=== PATIENT | female | born 1950 | race Caucasian/White ===

== ENCOUNTER 2018-04-13 01:55 | Outpatient (CLI) | payer MEDICARE, MEDICAID, SELFPAY ==
[2018-04-13 12:17] LABS: Hemoglobin A1C 7.3 % (4.5-6.2)
== END 2018-04-13 02:15 ==
PROVIDERS: PCP Family Medicine; Visit Provider Family Medicine
DX: E11.9 Type 2 diabetes mellitus without complications (principal)
CPT/HCPCS: 36415; 83036

== ENCOUNTER 2018-07-15 02:22 | Outpatient (CLI) | payer MEDICARE, MEDICAID, SELFPAY ==
[2018-07-15 11:40] LABS: Hemoglobin A1C 7.6 % (4.5-6.2)
== END 2018-07-15 02:42 ==
PROVIDERS: PCP Family Medicine; Visit Provider Family Medicine
DX: E11.9 Type 2 diabetes mellitus without complications (principal)
CPT/HCPCS: 36415; 83036

== ENCOUNTER 2018-09-27 01:04 | Outpatient (CLI) | payer MEDICARE, MEDICAID, SELFPAY ==
--- NOTE | 2018-09-27 07:38 | DI.US_ITS ---
SYMPTOM/DIAGNOSIS: LOW ABD PAIN, R10.30, FEELS SWELLING RT SIDE OF ABD, PAIN WORSE WITH LARGER MEALS, TENDERNESS BOTH LOWER QUADRANTS ABDOMEN ULTRASOUND: Routine examination was performed. The aorta and IVC are unremarkable. The liver is normal in size and echogenicity. There is normal flow in the portal vein. There are multiple mobile stones seen within the gallbladder. No gallbladder wall thickening, sludge or pericholecystic fluid is seen. The common duct is within normal limits at .5 cm. The pancreatic tail could not be visualized. The remainder of the pancreas is unremarkable. The spleen has a normal appearance as do the kidneys. There is a small amount of fluid in all four quadrants with the greatest quantity seen in the left upper quadrant. There does appear to be a small right pleural effusion. IMPRESSION: 1. Cholelithiasis. No biliary ductal dilatation. 2. Small amount of abdominal ascites. 3. Question of a small right pleural effusion.
== END 2018-09-27 01:24 ==
PROVIDERS: PCP Family Medicine; Visit Provider Family Medicine
DX: R10.31 Right lower quadrant pain (principal); K80.20 Calculus of gallbladder without cholecystitis without obstruction; R18.8 Other ascites; J90 Pleural effusion, not elsewhere classified
CPT/HCPCS: 76700

== ENCOUNTER 2018-09-29 10:14 | Outpatient (CLI) | payer MEDICARE, MEDICAID, SELFPAY ==
[2018-09-29 11:17] LABS: Hemoglobin A1C 7.9 % (4.5-6.2)
[2018-09-29 11:33] LABS: CREATININE 0.75 mg/dL (0.55-1.02)
== END 2018-09-29 10:34 ==
PROVIDERS: PCP Family Medicine; Visit Provider Family Medicine
DX: E11.9 Type 2 diabetes mellitus without complications (principal); R10.30 Lower abdominal pain, unspecified
CPT/HCPCS: 36415; 82565; 83036

== ENCOUNTER 2018-10-04 00:40 | Outpatient (CLI) | payer MEDICARE, MEDICAID, SELFPAY ==
--- NOTE | 2018-10-04 08:06 | DI.CT_ITS ---
SYMPTOMS/DIAGNOSIS: LOWER ABD PAIN WITH ASCITES ON US, R10.30, LOWER ABD PAIN CT SCAN OF THE ABDOMEN AND PELVIS: CT scan of the abdomen and pelvis was performed following the uneventful administration of intravenous and oral contrast material. Comparison ultrasound is 09/27/18. There are small bilateral pleural effusions, right greater than left. Dependent opacities are seen in the lung bases. This may represent atelectasis or pneumonia. The liver is normal in size. No hepatic mass is seen. The portal, superior mesenteric and splenic veins are patent. There are several stones seen within the gallbladder. No gallbladder wall thickening is seen. No biliary ductal dilatation is present. There is no evidence of a pancreatic mass. The spleen is unremarkable. The adrenal glands are unremarkable. The kidneys show normal and symmetric enhancement. No evidence of a solid renal mass or obstruction is present. The urinary bladder is intact. The patient appears to be status post hysterectomy. Note is made of a fluid attenuation, multiseptated right adnexal mass which may be ovarian. It measures 3.9 cm transverse x 3.7 cm AP. The left ovary appears grossly unremarkable. There is atherosclerosis of the abdominal aorta but no aneurysmal dilatation. Incidental note is made of a circumaortic left renal vein. There is a moderate amount of perihepatic and perisplenic ascites. There is small amount of fluid seen in the pericolic gutters bilaterally and a moderate amount of pelvic ascites. Septations are seen in the ascitic fluid in the cul-de-sac and the possibility of a spiculated mass is seen in the posterior pelvis (series 5 image 712). There is thickening of the wall of multiple loops of small bowel present. There is a question of mild soft tissue nodularity of the omentum and mesentery. There is no evidence of bowel obstruction. Degenerative changes are seen in the thoracic and lumbar spine. No aggressive osseous lesions are appreciated. IMPRESSION: 1. Moderate amount of abdominal and pelvic ascites. 2. Question of a spiculated mass-like region in the pelvis. Neoplasm or metastatic disease can not be excluded. Post surgical changes can not be excluded. This area lies posterior to the region of the vaginal cuff. 3. Bowel wall thickening involving multiple loops of small bowel. Inflammatory or infectious enteritis should be considered. 4. Question of thickening of the omentum and mesentery. An inflammatory or infectious process should be considered. Neoplastic process can not excluded. 5. Cholelithiasis. No biliary ductal dilatation. 6. No evidence of a hepatic or adrenal mass. 7. Small bilateral pleural effusions. 8. 3.9 x 3.7 cm right adnexal mass may be ovarian in origin. Pelvic ultrasound is recommended and/or MRI of the pelvis.
[2018-10-04] MEDS: Omnipaque 350 MG/ML 50 ML BTL IV (08:32)
[2018-10-04] MEDS: Omnipaque 350 MG/ML 100 ML BTL IV (10:11)
== END 2018-10-04 01:00 ==
PROVIDERS: PCP Family Medicine; Visit Provider Family Medicine
DX: R10.32 Left lower quadrant pain (principal); R18.8 Other ascites; J90 Pleural effusion, not elsewhere classified; R19.09 Other intra-abdominal and pelvic swelling, mass and lump; R19.07 Generalized intra-abdominal and pelvic swelling, mass and lump; K63.89 Other specified diseases of intestine
CPT/HCPCS: 74177; J3490; Q9967

== ENCOUNTER 2018-10-20 03:38 | Outpatient (CLI) | payer MEDICARE, MEDICAID, SELFPAY ==
--- NOTE | 2018-10-20 08:59 | DI.US_ITS ---
SYMPTOMS/DIAGNOSIS: RIGHT ADNEXAL MASS ON CT ABDOMEN, N94.9 PELVIC ULTRASOUND: A transabdominal ultrasound was carried out. The patient refused a transvaginal study. A 4.1 x 3.7 x 4.2 cm cystic mass is noted in the right adnexa. Thick septations are demonstrated. The patient is status post hysterectomy. Ascitic fluid is noted in the abdomen and pelvis. The left ovary is not visualized. The kidneys are intact. The right kidney measures 10.5, the left kidney 9.8 cm. A right adnexal mass is largely cystic, and contains thick septations and measures up to 4.1 x 3.7 x 4.2 cm. Ascitic fluid is identified in the abdomen and pelvis. The lesion may be of ovarian origin. In an attempt to further characterize the nature of this abnormality, further assessment with MRI could be considered.
== END 2018-10-20 03:58 ==
PROVIDERS: PCP Family Medicine; Visit Provider Family Medicine
DX: N83.8 Other noninflammatory disorders of ovary, fallopian tube and broad ligament (principal); N94.9 Unspecified condition associated with female genital organs and menstrual cycle; R18.8 Other ascites
CPT/HCPCS: 76856

== ENCOUNTER 2019-01-11 01:38 | Outpatient (RCR) | payer MEDICARE, MEDICAID, SELFPAY ==
[2019-01-11] MEDS: Heparin 500 UNITS/5 ML SYRINGE IV (11:51)
[2019-01-11] MEDS: Normal Saline Flush 10 ML SYR IVP (11:51)
[2019-01-11 11:57] LABS: Abs Immature Grans 0.02 k/cumm (0.0-0.09); Absolute Basophil Count 0.02 k/cumm (0.0-0.2); Absolute Eosinophil Count 0.13 k/cumm (0.0-0.7); Absolute Lymphocyte Count 1.15 k/cumm (1.2-3.4); Absolute Monocyte Count 0.21 k/cumm (0.11-0.7); Absolute Neutrophil Count 2.76 k/cumm (1.2-6.7); Basophils % 0.5; HCT 35.8 % (36.0-46.0); HGB 11.4 g/dL (12.0-15.5); Immature Grans % 0.5; Lymphocytes % 26.8; Mean Corp. HGB Concentration 31.8 g/dL (32.0-36.0); Mean Corpuscular Volume 84.8 fL (80-95); Mean Platelet Volume 9.5 fL (8.0-11.0); Monocytes % 4.9; Neutrophils % 64.3; Platelet Count 364 x1000/uL (130-400); RBC 4.22 m/cumm (4.00-5.20); RBC Distribution Width 13.9 % (11.7-14.6); White Blood Cell Count 4.29 k/cumm (4.4-10.8)
== END 2019-01-16 23:59 | disposition home or self-care (01) ==
LOC: INF 01:38
PROVIDERS: PCP Family Medicine; Visit Provider Obstetrics & Gynecology Gynecologic Oncology
DX: C48.2 Malignant neoplasm of peritoneum, unspecified (principal); Z45.2 Encounter for adjustment and management of vascular access device
CPT/HCPCS: 36591; 85025

== ENCOUNTER 2019-02-14 00:58 | Outpatient (RCR) | payer MEDICARE, MEDICAID, SELFPAY ==
[2019-01-17 11:00] LABS: Absolute Basophil Count 0.04 k/cumm (0.0-0.2); Absolute Eosinophil Count 0.08 k/cumm (0.0-0.7); Absolute Lymphocyte Count 0.96 k/cumm (1.2-3.4); Absolute Neutrophil Count 1.44 k/cumm (1.2-6.7); Basophils % 1.3; Eosinophils % 2.6; HCT 35.9 % (36.0-46.0); HGB 11.5 g/dL (12.0-15.5); Lymphocytes % 31.8; Mean Corpuscular Hemoglobin 27.4 pg (27.0-33.0); Mean Corpuscular Volume 85.5 fL (80-95); Monocytes % 16.6; Neutrophils % 47.7; Platelet Count 325 x1000/uL (130-400); RBC Distribution Width 14.4 % (11.7-14.6); White Blood Cell Count 3.02 k/cumm (4.4-10.8)
[2019-01-17] MEDS: Normal Saline Flush 10 ML SYR IVP (11:05)
[2019-01-17] MEDS: Heparin 500 UNITS/5 ML SYRINGE IV (11:05)
[2019-01-17 11:23] LABS: Basophilic Stippling Present; Diff Comment Diff Reviewed; Poikilocytes 1+; Polychromasia Present
[2019-01-24] MEDS: Heparin 500 UNITS/5 ML SYRINGE IV (10:05)
[2019-01-24] MEDS: Normal Saline Flush 10 ML SYR IVP (10:05)
[2019-01-24 10:12] LABS: Abs Immature Grans 0.02 k/cumm (0.0-0.09); Absolute Basophil Count 0.06 k/cumm (0.0-0.2); Absolute Eosinophil Count 0.05 k/cumm (0.0-0.7); Absolute Lymphocyte Count 1.06 k/cumm (1.2-3.4); Absolute Neutrophil Count 2.97 k/cumm (1.2-6.7); Basophils % 1.2; HCT 37.8 % (36.0-46.0); HGB 12.1 g/dL (12.0-15.5); Immature Grans % 0.4; Lymphocytes % 21.8; Mean Corpuscular Hemoglobin 27.4 pg (27.0-33.0); Mean Corpuscular Volume 85.5 fL (80-95); Mean Platelet Volume 8.8 fL (8.0-11.0); Monocytes % 14.4; Neutrophils % 61.2; Platelet Count 275 x1000/uL (130-400); RBC 4.42 m/cumm (4.00-5.20); RBC Distribution Width 14.7 % (11.7-14.6); White Blood Cell Count 4.86 k/cumm (4.4-10.8)
[2019-01-24 10:28] LABS: ALT 14 U/L (12-78); AST 9 U/L (15-37); Albumin 3.5 g/dL (3.4-5.0); Alkaline Phosphatase 72 U/L (46-116); Anion Gap 7.8 mmol/L (3-11); BUN 12 mg/dL (7-18); Bilirubin, Total 0.2 mg/dL (0.2-1.0); CO2 29.2 mmol/L (21.0-32.0); CREATININE 0.56 mg/dL (0.55-1.02); Calcium 9.1 mg/dL (8.5-10.1); Chloride 100 mmol/L (98-107); Glucose 177 mg/dL (70-100); Potassium 4.6 mmol/L (3.5-5.1); Sodium 137 mmol/L (136-145); Total Protein 7.4 g/dL (6.4-8.2)
[2019-01-25 11:40] LABS: CA 125 260 U/mL (0-30)
[2019-02-01] MEDS: Normal Saline Flush 10 ML SYR IVP (11:56)
[2019-02-01] MEDS: Heparin 500 UNITS/5 ML SYRINGE IV (11:57)
[2019-02-01 12:16] LABS: Abs Immature Grans 0.01 k/cumm (0.0-0.09); Absolute Basophil Count 0.01 k/cumm (0.0-0.2); Absolute Eosinophil Count 0.11 k/cumm (0.0-0.7); Absolute Lymphocyte Count 0.85 k/cumm (1.2-3.4); Absolute Monocyte Count 0.13 k/cumm (0.11-0.7); Absolute Neutrophil Count 2.46 k/cumm (1.2-6.7); Basophils % 0.3; Eosinophils % 3.1; HCT 34.2 % (36.0-46.0); HGB 10.9 g/dL (12.0-15.5); Immature Grans % 0.3; Lymphocytes % 23.8; Mean Corp. HGB Concentration 31.9 g/dL (32.0-36.0); Mean Corpuscular Hemoglobin 26.8 pg (27.0-33.0); Mean Corpuscular Volume 84.2 fL (80-95); Mean Platelet Volume 9.3 fL (8.0-11.0); Monocytes % 3.6; Neutrophils % 68.9; Platelet Count 168 x1000/uL (130-400); RBC 4.06 m/cumm (4.00-5.20); RBC Distribution Width 14.3 % (11.7-14.6); White Blood Cell Count 3.57 k/cumm (4.4-10.8)
[2019-02-01 12:38] LABS: Hemoglobin A1C 8.1 % (4.5-6.2)
[2019-02-08] MEDS: Normal Saline Flush 10 ML SYR IVP (12:00)
[2019-02-08] MEDS: Heparin 500 UNITS/5 ML SYRINGE IV (12:00)
[2019-02-08 12:35] LABS: Abs Immature Grans 0.01 k/cumm (0.0-0.09); Absolute Basophil Count 0.02 k/cumm (0.0-0.2); Absolute Eosinophil Count 0.05 k/cumm (0.0-0.7); Absolute Lymphocyte Count 0.98 k/cumm (1.2-3.4); Absolute Neutrophil Count 0.62 k/cumm (1.2-6.7); Eosinophils % 2.4; HCT 36.1 % (36.0-46.0); HGB 11.6 g/dL (12.0-15.5); Immature Grans % 0.5; Lymphocytes % 47.1; Mean Corp. HGB Concentration 32.1 g/dL (32.0-36.0); Mean Corpuscular Hemoglobin 27.2 pg (27.0-33.0); Mean Corpuscular Volume 84.7 fL (80-95); Mean Platelet Volume 8.8 fL (8.0-11.0); Monocytes % 19.2; Neutrophils % 29.8; Platelet Count 379 x1000/uL (130-400); RBC 4.26 m/cumm (4.00-5.20); RBC Distribution Width 15.2 % (11.7-14.6); White Blood Cell Count 2.08 k/cumm (4.4-10.8)
[2019-02-08 12:52] LABS: Diff Comment Diff Reviewed; Poikilocytes 1+; Polychromasia Present
[2019-02-14] MEDS: Heparin 500 UNITS/5 ML SYRINGE IV (09:10)
[2019-02-14] MEDS: Normal Saline Flush 10 ML SYR IVP (09:10)
[2019-02-14 09:34] LABS: Abs Immature Grans 0.01 k/cumm (0.0-0.09); Absolute Basophil Count 0.03 k/cumm (0.0-0.2); Absolute Eosinophil Count 0.04 k/cumm (0.0-0.7); Absolute Lymphocyte Count 0.88 k/cumm (1.2-3.4); Absolute Monocyte Count 0.53 k/cumm (0.11-0.7); Absolute Neutrophil Count 2.27 k/cumm (1.2-6.7); Basophils % 0.8; Eosinophils % 1.1; HCT 36.6 % (36.0-46.0); HGB 11.7 g/dL (12.0-15.5); Immature Grans % 0.3; Lymphocytes % 23.4; Mean Corpuscular Hemoglobin 27.3 pg (27.0-33.0); Mean Corpuscular Volume 85.5 fL (80-95); Mean Platelet Volume 8.5 fL (8.0-11.0); Monocytes % 14.1; Neutrophils % 60.3; Platelet Count 402 x1000/uL (130-400); RBC 4.28 m/cumm (4.00-5.20); White Blood Cell Count 3.76 k/cumm (4.4-10.8)
[2019-02-14 09:53] LABS: ALT 19 U/L (12-78); AST 9 U/L (15-37); Albumin 3.5 g/dL (3.4-5.0); Alkaline Phosphatase 67 U/L (46-116); Anion Gap 9.4 mmol/L (3-11); BUN 11 mg/dL (7-18); Bilirubin, Total 0.2 mg/dL (0.2-1.0); CO2 27.6 mmol/L (21.0-32.0); CREATININE 0.56 mg/dL (0.55-1.02); Calcium 9.5 mg/dL (8.5-10.1); Chloride 98 mmol/L (98-107); Glucose 172 mg/dL (70-100); Magnesium 1.1 mg/dL (1.8-2.4); Potassium 4.3 mmol/L (3.5-5.1); Sodium 135 mmol/L (136-145); Total Protein 7.4 g/dL (6.4-8.2)
[2019-02-15 10:31] LABS: CA 125 146 U/mL (0-30)
== END 2019-02-16 23:59 | disposition home or self-care (01) ==
LOC: INF 00:58
PROVIDERS: Family Medicine; PCP Family Medicine; Visit Provider Obstetrics & Gynecology Gynecologic Oncology
DX: C48.2 Malignant neoplasm of peritoneum, unspecified (principal); Z45.2 Encounter for adjustment and management of vascular access device
CPT/HCPCS: 36591; 80053; 86304; 83036; 83735; 85025

== ENCOUNTER 2019-03-15 01:17 | Outpatient (RCR) | payer MEDICARE, MEDICAID, SELFPAY ==
[2019-02-22] MEDS: Normal Saline Flush 10 ML SYR IVP (09:20)
[2019-02-22] MEDS: Heparin 500 UNITS/5 ML SYRINGE IV (09:20)
[2019-02-22 09:43] LABS: Abs Immature Grans 0.01 k/cumm (0.0-0.09); Absolute Basophil Count 0.01 k/cumm (0.0-0.2); Absolute Eosinophil Count 0.03 k/cumm (0.0-0.7); Absolute Lymphocyte Count 0.74 k/cumm (1.2-3.4); Absolute Monocyte Count 0.12 k/cumm (0.11-0.7); Absolute Neutrophil Count 1.33 k/cumm (1.2-6.7); Basophils % 0.4; Eosinophils % 1.3; HCT 33.7 % (36.0-46.0); Immature Grans % 0.4; Mean Corp. HGB Concentration 32.6 g/dL (32.0-36.0); Mean Corpuscular Hemoglobin 27.5 pg (27.0-33.0); Mean Corpuscular Volume 84.3 fL (80-95); Mean Platelet Volume 9.8 fL (8.0-11.0); Monocytes % 5.4; Neutrophils % 59.5; Platelet Count 207 x1000/uL (130-400); RBC Distribution Width 15.3 % (11.7-14.6); White Blood Cell Count 2.24 k/cumm (4.4-10.8)
[2019-02-22 10:20] LABS: Diff Comment Diff Reviewed
[2019-03-01] MEDS: Normal Saline Flush 10 ML SYR IVP (11:44)
[2019-03-01] MEDS: Heparin 500 UNITS/5 ML SYRINGE IV (11:45)
[2019-03-01 11:58] LABS: Abs Immature Grans 0.05 k/cumm (0.0-0.09); Absolute Basophil Count 0.03 k/cumm (0.0-0.2); Absolute Eosinophil Count 0.03 k/cumm (0.0-0.7); Absolute Lymphocyte Count 1.04 k/cumm (1.2-3.4); Absolute Monocyte Count 0.61 k/cumm (0.11-0.7); Absolute Neutrophil Count 0.95 k/cumm (1.2-6.7); Basophils % 1.1; Eosinophils % 1.1; HCT 33.5 % (36.0-46.0); Immature Grans % 1.8; Lymphocytes % 38.4; Mean Corp. HGB Concentration 32.8 g/dL (32.0-36.0); Mean Corpuscular Hemoglobin 27.9 pg (27.0-33.0); Mean Platelet Volume 8.7 fL (8.0-11.0); Monocytes % 22.5; Neutrophils % 35.1; Platelet Count 383 x1000/uL (130-400); RBC 3.94 m/cumm (4.00-5.20); White Blood Cell Count 2.71 k/cumm (4.4-10.8)
[2019-03-01 12:28] LABS: Diff Comment Agrees w/ Instrument
[2019-03-01 12:29] LABS: Poikilocytes 2+; Polychromasia Present
[2019-03-07] MEDS: Normal Saline Flush 10 ML SYR IVP (11:48)
[2019-03-07] MEDS: Heparin 500 UNITS/5 ML SYRINGE IV (11:48)
[2019-03-07 12:06] LABS: Abs Immature Grans 0.03 k/cumm (0.0-0.09); Absolute Basophil Count 0.04 k/cumm (0.0-0.2); Absolute Eosinophil Count 0.04 k/cumm (0.0-0.7); Absolute Lymphocyte Count 1.08 k/cumm (1.2-3.4); Absolute Monocyte Count 0.65 k/cumm (0.11-0.7); Absolute Neutrophil Count 4.17 k/cumm (1.2-6.7); Basophils % 0.7; Eosinophils % 0.7; HCT 36.5 % (36.0-46.0); HGB 11.7 g/dL (12.0-15.5); Immature Grans % 0.5; Mean Corp. HGB Concentration 32.1 g/dL (32.0-36.0); Mean Corpuscular Hemoglobin 27.7 pg (27.0-33.0); Mean Corpuscular Volume 86.3 fL (80-95); Mean Platelet Volume 8.5 fL (8.0-11.0); Monocytes % 10.8; Neutrophils % 69.3; Platelet Count 368 x1000/uL (130-400); RBC 4.23 m/cumm (4.00-5.20); RBC Distribution Width 16.7 % (11.7-14.6); White Blood Cell Count 6.01 k/cumm (4.4-10.8)
[2019-03-07 12:19] LABS: ALT 19 U/L (12-78); AST 13 U/L (15-37); Albumin 3.4 g/dL (3.4-5.0); Alkaline Phosphatase 71 U/L (46-116); Anion Gap 11.2 mmol/L (3-11); BUN 7 mg/dL (7-18); Bilirubin, Total 0.3 mg/dL (0.2-1.0); CO2 27.8 mmol/L (21.0-32.0); CREATININE 0.71 mg/dL (0.55-1.02); Calcium 8.9 mg/dL (8.5-10.1); Chloride 102 mmol/L (98-107); Glucose 196 mg/dL (70-100); Potassium 4.3 mmol/L (3.5-5.1); Sodium 141 mmol/L (136-145); Total Protein 7.4 g/dL (6.4-8.2)
[2019-03-08 10:41] LABS: CA 125 121 U/mL (0-30)
[2019-03-15] MEDS: Normal Saline Flush 10 ML SYR IVP (11:55)
[2019-03-15] MEDS: Heparin 500 UNITS/5 ML SYRINGE IV (11:55)
[2019-03-15 12:11] LABS: Abs Immature Grans 0.02 k/cumm (0.0-0.09); Absolute Basophil Count 0.03 k/cumm (0.0-0.2); Absolute Eosinophil Count 0.04 k/cumm (0.0-0.7); Absolute Lymphocyte Count 0.73 k/cumm (1.2-3.4); Absolute Monocyte Count 0.12 k/cumm (0.11-0.7); Absolute Neutrophil Count 2.25 k/cumm (1.2-6.7); Basophils % 0.9; Eosinophils % 1.3; HCT 32.6 % (36.0-46.0); HGB 10.6 g/dL (12.0-15.5); Immature Grans % 0.6; Lymphocytes % 22.9; Mean Corp. HGB Concentration 32.5 g/dL (32.0-36.0); Mean Corpuscular Hemoglobin 28.4 pg (27.0-33.0); Mean Corpuscular Volume 87.4 fL (80-95); Mean Platelet Volume 9.7 fL (8.0-11.0); Monocytes % 3.8; Neutrophils % 70.5; Platelet Count 180 x1000/uL (130-400); RBC 3.73 m/cumm (4.00-5.20); RBC Distribution Width 16.2 % (11.7-14.6); White Blood Cell Count 3.19 k/cumm (4.4-10.8)
== END 2019-03-19 23:59 | disposition home or self-care (01) ==
LOC: INF 01:17
PROVIDERS: PCP Family Medicine; Visit Provider Obstetrics & Gynecology Gynecologic Oncology
DX: C48.2 Malignant neoplasm of peritoneum, unspecified (principal); Z45.2 Encounter for adjustment and management of vascular access device
CPT/HCPCS: 36591; 80053; 86304; 85025

== ENCOUNTER 2019-04-18 01:42 | Outpatient (RCR) | payer MEDICARE, MEDICAID, SELFPAY ==
[2019-03-22] MEDS: Normal Saline Flush 10 ML SYR IVP (11:47)
[2019-03-22] MEDS: Heparin 500 UNITS/5 ML SYRINGE IV (11:47)
[2019-03-22 11:57] LABS: Absolute Basophil Count 0.03 k/cumm (0.0-0.2); Absolute Eosinophil Count 0.03 k/cumm (0.0-0.7); Absolute Lymphocyte Count 1.19 k/cumm (1.2-3.4); Absolute Monocyte Count 0.55 k/cumm (0.11-0.7); Absolute Neutrophil Count 0.64 k/cumm (1.2-6.7); Basophils % 1.2; Eosinophils % 1.2; HCT 34.5 % (36.0-46.0); Lymphocytes % 48.8; Mean Corp. HGB Concentration 31.9 g/dL (32.0-36.0); Mean Corpuscular Hemoglobin 27.8 pg (27.0-33.0); Mean Corpuscular Volume 87.1 fL (80-95); Monocytes % 22.5; Neutrophils % 26.3; Platelet Count 246 x1000/uL (130-400); RBC 3.96 m/cumm (4.00-5.20); White Blood Cell Count 2.44 k/cumm (4.4-10.8)
[2019-03-22 12:24] LABS: Diff Comment RBC Morph Reviewed
[2019-03-22 12:25] LABS: Poikilocytes 1+; Polychromasia Present
[2019-03-28] MEDS: Heparin 500 UNITS/5 ML SYRINGE IV (11:35)
[2019-03-28] MEDS: Normal Saline Flush 10 ML SYR IVP (11:35)
[2019-03-28 11:52] LABS: Abs Immature Grans 0.02 k/cumm (0.0-0.09); Absolute Basophil Count 0.02 k/cumm (0.0-0.2); Absolute Monocyte Count 0.69 k/cumm (0.11-0.7); Absolute Neutrophil Count 2.79 k/cumm (1.2-6.7); Basophils % 0.5; HCT 35.5 % (36.0-46.0); HGB 11.4 g/dL (12.0-15.5); Immature Grans % 0.5; Lymphocytes % 20.4; Mean Corp. HGB Concentration 32.1 g/dL (32.0-36.0); Mean Corpuscular Hemoglobin 28.1 pg (27.0-33.0); Mean Corpuscular Volume 87.7 fL (80-95); Mean Platelet Volume 8.2 fL (8.0-11.0); Monocytes % 15.6; Platelet Count 234 x1000/uL (130-400); RBC 4.05 m/cumm (4.00-5.20); White Blood Cell Count 4.42 k/cumm (4.4-10.8)
[2019-03-28 12:05] LABS: ALT 21 U/L (14-59); AST 14 U/L (15-37); Albumin 3.5 g/dL (3.4-5.0); Alkaline Phosphatase 71 U/L (46-116); Anion Gap 10.4 mmol/L (3-11); BUN 11 mg/dL (7-18); Bilirubin, Total 0.4 mg/dL (0.2-1.0); CO2 28.6 mmol/L (21.0-32.0); Calcium 8.6 mg/dL (8.5-10.1); Chloride 97 mmol/L (98-107); Glucose 199 mg/dL (70-100); Potassium 4.1 mmol/L (3.5-5.1); Sodium 136 mmol/L (136-145); Total Protein 7.3 g/dL (6.4-8.2)
[2019-03-29 12:01] LABS: CA 125 74 U/mL (0-30)
[2019-04-05] MEDS: Heparin 500 UNITS/5 ML SYRINGE IV (11:35)
[2019-04-05] MEDS: Normal Saline Flush 10 ML SYR IVP (11:35)
[2019-04-05 11:45] LABS: Abs Immature Grans 0.01 k/cumm (0.0-0.09); Absolute Basophil Count 0.01 k/cumm (0.0-0.2); Absolute Eosinophil Count 0.04 k/cumm (0.0-0.7); Absolute Lymphocyte Count 0.94 k/cumm (1.2-3.4); Absolute Monocyte Count 0.08 k/cumm (0.11-0.7); Basophils % 0.4; Eosinophils % 1.6; HCT 31.4 % (36.0-46.0); HGB 10.2 g/dL (12.0-15.5); Immature Grans % 0.4; Lymphocytes % 36.4; Mean Corp. HGB Concentration 32.5 g/dL (32.0-36.0); Mean Corpuscular Hemoglobin 28.6 pg (27.0-33.0); Mean Platelet Volume 9.1 fL (8.0-11.0); Monocytes % 3.1; Neutrophils % 58.1; Platelet Count 142 x1000/uL (130-400); RBC 3.57 m/cumm (4.00-5.20); White Blood Cell Count 2.58 k/cumm (4.4-10.8)
[2019-04-12] MEDS: Heparin 500 UNITS/5 ML SYRINGE IV (11:49)
[2019-04-12] MEDS: Normal Saline Flush 10 ML SYR IVP (11:49)
[2019-04-12 11:58] LABS: Absolute Basophil Count 0.01 k/cumm (0.0-0.2); Absolute Eosinophil Count 0.02 k/cumm (0.0-0.7); Absolute Lymphocyte Count 0.95 k/cumm (1.2-3.4); Absolute Monocyte Count 0.45 k/cumm (0.11-0.7); Basophils % 0.5; Eosinophils % 1.1; Lymphocytes % 51.1; Mean Corp. HGB Concentration 33.3 g/dL (32.0-36.0); Mean Corpuscular Hemoglobin 29.7 pg (27.0-33.0); Mean Corpuscular Volume 89.2 fL (80-95); Mean Platelet Volume 8.5 fL (8.0-11.0); Monocytes % 24.2; Neutrophils % 23.1; Platelet Count 207 x1000/uL (130-400); RBC Distribution Width 16.9 % (11.7-14.6)
[2019-04-12 13:10] LABS: Absolute Neutrophil Count 0.43 k/cumm (1.2-6.7); White Blood Cell Count 1.86 k/cumm (4.4-10.8)
[2019-04-12 13:11] LABS: Diff Comment Agrees w/ Instrument
[2019-04-12 13:12] LABS: Anisocytosis 2+; Ovalocytes 2+; Poikilocytes 2+; Schistocytes 1+
[2019-04-18] MEDS: Heparin 500 UNITS/5 ML SYRINGE IV (11:30)
[2019-04-18] MEDS: Normal Saline Flush 10 ML SYR IVP (11:30)
[2019-04-18 11:50] LABS: Abs Immature Grans 0.02 k/cumm (0.0-0.09); Absolute Basophil Count 0.01 k/cumm (0.0-0.2); Absolute Eosinophil Count 0.04 k/cumm (0.0-0.7); Absolute Lymphocyte Count 0.84 k/cumm (1.2-3.4); Absolute Monocyte Count 0.49 k/cumm (0.11-0.7); Absolute Neutrophil Count 1.81 k/cumm (1.2-6.7); Basophils % 0.3; Eosinophils % 1.2; HCT 34.4 % (36.0-46.0); HGB 11.1 g/dL (12.0-15.5); Immature Grans % 0.6; Lymphocytes % 26.2; Mean Corp. HGB Concentration 32.3 g/dL (32.0-36.0); Mean Corpuscular Hemoglobin 29.3 pg (27.0-33.0); Mean Corpuscular Volume 90.8 fL (80-95); Mean Platelet Volume 8.3 fL (8.0-11.0); Monocytes % 15.3; Neutrophils % 56.4; Platelet Count 246 x1000/uL (130-400); RBC 3.79 m/cumm (4.00-5.20); RBC Distribution Width 16.9 % (11.7-14.6); White Blood Cell Count 3.21 k/cumm (4.4-10.8)
[2019-04-18 12:03] LABS: ALT 23 U/L (14-59); AST 16 U/L (15-37); Albumin 3.5 g/dL (3.4-5.0); Alkaline Phosphatase 76 U/L (46-116); BUN 10 mg/dL (7-18); Bilirubin, Total 0.3 mg/dL (0.2-1.0); CREATININE 0.76 mg/dL (0.55-1.02); Calcium 8.2 mg/dL (8.5-10.1); Chloride 103 mmol/L (98-107); Glucose 200 mg/dL (70-100); Potassium 4.2 mmol/L (3.5-5.1); Sodium 139 mmol/L (136-145); Total Protein 7.1 g/dL (6.4-8.2)
[2019-04-19 10:36] LABS: CA 125 60 U/mL (0-30)
== END 2019-04-18 23:59 | disposition home or self-care (01) ==
LOC: INF 01:42
PROVIDERS: PCP Family Medicine; Visit Provider Obstetrics & Gynecology Gynecologic Oncology
DX: C48.2 Malignant neoplasm of peritoneum, unspecified (principal); Z45.2 Encounter for adjustment and management of vascular access device
CPT/HCPCS: 36591; 80053; 86304; 85025

== ENCOUNTER 2019-05-17 02:11 | Outpatient (RCR) | payer MEDICARE, MEDICAID, SELFPAY ==
[2019-04-26 12:02] LABS: Abs Immature Grans 0.01 k/cumm (0.0-0.09); Absolute Basophil Count 0.01 k/cumm (0.0-0.2); Absolute Eosinophil Count 0.02 k/cumm (0.0-0.7); Absolute Lymphocyte Count 0.74 k/cumm (1.2-3.4); Absolute Monocyte Count 0.13 k/cumm (0.11-0.7); Absolute Neutrophil Count 1.56 k/cumm (1.2-6.7); Basophils % 0.4; Eosinophils % 0.8; HCT 31.4 % (36.0-46.0); HGB 10.3 g/dL (12.0-15.5); Immature Grans % 0.4; Mean Corp. HGB Concentration 32.8 g/dL (32.0-36.0); Mean Corpuscular Volume 91.5 fL (80-95); Mean Platelet Volume 9.2 fL (8.0-11.0); Monocytes % 5.3; Neutrophils % 63.1; Platelet Count 223 x1000/uL (130-400); RBC 3.43 m/cumm (4.00-5.20); RBC Distribution Width 15.3 % (11.7-14.6); White Blood Cell Count 2.47 k/cumm (4.4-10.8)
[2019-04-26] MEDS: Heparin 500 UNITS/5 ML SYRINGE IV (12:22)
[2019-04-26] MEDS: Normal Saline Flush 10 ML SYR IVP (12:22)
[2019-05-03] MEDS: Heparin 500 UNITS/5 ML SYRINGE IV (11:40)
[2019-05-03] MEDS: Normal Saline Flush 10 ML SYR IVP (11:40)
[2019-05-03 11:59] LABS: HCT 32.5 % (36.0-46.0); HGB 10.5 g/dL (12.0-15.5); Mean Corp. HGB Concentration 32.3 g/dL (32.0-36.0); Mean Corpuscular Hemoglobin 29.9 pg (27.0-33.0); Mean Corpuscular Volume 92.6 fL (80-95); Mean Platelet Volume 8.6 fL (8.0-11.0); Platelet Count 249 x1000/uL (130-400); RBC 3.51 m/cumm (4.00-5.20); RBC Distribution Width 15.5 % (11.7-14.6)
[2019-05-03 12:39] LABS: White Blood Cell Count 1.77 k/cumm (4.4-10.8)
[2019-05-03 12:46] LABS: Absolute Neutrophil Count 0.57 k/cumm (1.2-6.7)
[2019-05-03 12:47] LABS: Absolute Lymphocyte Count 0.83 k/cumm (1.2-3.4)
[2019-05-03 12:48] LABS: Absolute Monocyte Count 0.35 k/cumm (0.11-0.7)
[2019-05-03 12:49] LABS: Absolute Eosinophil Count 0.02 k/cumm (0.0-0.7)
[2019-05-03 12:51] LABS: Diff Comment Manual Differential
[2019-05-03 12:52] LABS: RBC Morphology Normal
[2019-05-06 12:10] LABS: Abs Immature Grans 0.03 k/cumm (0.0-0.09); Absolute Basophil Count 0.02 k/cumm (0.0-0.2); Absolute Eosinophil Count 0.03 k/cumm (0.0-0.7); Absolute Lymphocyte Count 1.09 k/cumm (1.2-3.4); Absolute Monocyte Count 0.54 k/cumm (0.11-0.7); Absolute Neutrophil Count 1.12 k/cumm (1.2-6.7); Basophils % 0.7; Eosinophils % 1.1; HCT 35.2 % (36.0-46.0); HGB 11.4 g/dL (12.0-15.5); Immature Grans % 1.1; Lymphocytes % 38.5; Mean Corp. HGB Concentration 32.4 g/dL (32.0-36.0); Mean Corpuscular Hemoglobin 30.1 pg (27.0-33.0); Mean Corpuscular Volume 92.9 fL (80-95); Mean Platelet Volume 8.5 fL (8.0-11.0); Monocytes % 19.1; Neutrophils % 39.5; Platelet Count 260 x1000/uL (130-400); RBC 3.79 m/cumm (4.00-5.20); RBC Distribution Width 15.8 % (11.7-14.6); White Blood Cell Count 2.83 k/cumm (4.4-10.8)
[2019-05-06] MEDS: Heparin 500 UNITS/5 ML SYRINGE IV (12:24)
[2019-05-06] MEDS: Normal Saline Flush 10 ML SYR IVP (12:24)
[2019-05-06 12:26] LABS: ALT 22 U/L (14-59); AST 16 U/L (15-37); Albumin 3.6 g/dL (3.4-5.0); Alkaline Phosphatase 70 U/L (46-116); Anion Gap 10.9 mmol/L (3-11); BUN 10 mg/dL (7-18); Bilirubin, Total 0.4 mg/dL (0.2-1.0); CO2 26.1 mmol/L (21.0-32.0); Calcium 8.5 mg/dL (8.5-10.1); Chloride 102 mmol/L (98-107); Glucose 195 mg/dL (70-100); Potassium 4.2 mmol/L (3.5-5.1); Sodium 139 mmol/L (136-145); Total Protein 7.4 g/dL (6.4-8.2)
[2019-05-09 10:49] LABS: CA 125 60 U/mL (0-30)
[2019-05-17] MEDS: Heparin 500 UNITS/5 ML SYRINGE IV (11:56)
[2019-05-17] MEDS: Normal Saline Flush 10 ML SYR IVP (11:56)
[2019-05-17 12:09] LABS: Abs Immature Grans 0.03 k/cumm (0.0-0.09); HCT 33.4 % (36.0-46.0); HGB 10.9 g/dL (12.0-15.5); Mean Corp. HGB Concentration 32.6 g/dL (32.0-36.0); Platelet Count 117 x1000/uL (130-400); RBC 3.63 m/cumm (4.00-5.20); RBC Distribution Width 14.9 % (11.7-14.6); White Blood Cell Count 4.49 k/cumm (4.4-10.8)
[2019-05-17 12:41] LABS: Absolute Eosinophil Count 0.04 k/cumm (0.0-0.7); Absolute Lymphocyte Count 1.12 k/cumm (1.2-3.4); Absolute Monocyte Count 0.49 k/cumm (0.11-0.7); Absolute Neutrophil Count 2.74 k/cumm (1.2-6.7); Atypical Lymphocytes % 3; Diff Comment Manual Differential; RBC Morphology Normal
== END 2019-05-19 23:59 | disposition home or self-care (01) ==
LOC: INF 02:11
PROVIDERS: PCP Family Medicine; Visit Provider Obstetrics & Gynecology Gynecologic Oncology
DX: C48.2 Malignant neoplasm of peritoneum, unspecified (principal); Z45.2 Encounter for adjustment and management of vascular access device
CPT/HCPCS: 36591; 80053; 86304; 85025

== ENCOUNTER 2019-05-30 10:12 | Emergency (ER) | payer MEDICARE, MEDICAID, SELFPAY ==
[2019-05-30 10:19] VITALS: BP 105/63; PULSE 105; RESP 18; TEMP 36.6; O2SAT 97
--- NOTE | 2019-05-30 10:31 | W.ED.GENAD ---
Discharge Plan Disposition Patient Disposition: HOME Condition: Stable Discharge Details Chief Complaint: Nausea/Vomit/Diar Clinical Impression: Vomiting, Dehydration Primary Care Provider: Buck Major ED Provider: Chilo Patel Home Meds and New Rx's Prescriptions: Continued glipizide 5 mg tablet extended release 24hr 5 mg PO DAILY Qty: 90 RF: 3 (DME) lancets 28 gauge misc 1 ea Miscellaneous BID Qty: 200 RF: 4 lisinopril 10 mg tablet 10 mg PO DAILY Qty: 90 RF: 3 metformin 1,000 mg tablet 1,000 mg PO BID Qty: 180 RF: 4 (DME) Blood Glucose Test strip 1 ea Miscellaneous BID Qty: 200 RF: 4 metoprolol tartrate 25 mg tablet 12.5 mg PO BID RF: 0 pantoprazole [Protonix] 40 mg tablet,delayed release (DR/EC) 40 mg PO DAILY RF: 0 Lantus Solostar U-100 Insulin 100 unit/mL (3 mL) insulin pen 10 unit SC HS RF: 0 lorazepam [Ativan] 0.5 mg tablet 0.5 mg PO Q6H PRN PRNRF: 0 prochlorperazine maleate [Compazine] 10 mg tablet 10 mg PO Q6H PRN RF: 0 ondansetron HCl [Zofran] 8 mg tablet 8 mg PO Q8H PRN PRNRF: 0 aspirin [Aspirin Low-Strength] 81 MG tablet,chewable 81 mg PO DAILY RF: 0 (DME) Comfort EZ Pen [place] 33 gauge x 3/16 needle See Dose Instructions .ROUTE .MEDSUPPLY Qty: 100 RF: 3 loratadine [Claritin] 10 mg Tablet 10 mg PO DAILY RF: 0 Discharge Instructions Instructions: Dehydration (ED), Acute Nausea and Vomiting (ED) Additional Instructions: Please return immediately to the emergency department if you develop any new or worsening symptoms or if you become otherwise concerned. It is extremely important that you call you soon as possible to make an appointment to be seen in follow-up for this visit by your primary care doctor, and also that you attend your scheduled appointment with oncology tomorrow as planned. Referrals: Buck Major MD [Primary Care Provider] - Discharge Data Discharge Date/Time-TO BE ENTERED AT DEPARTURE: 05/30/19 16:35 Medical Decision Making Martha Linares is a 69-year-old woman with a history of insulin-dependent diabetes, hypertension, ovarian cancer currently being treated with chemotherapy who presented to the emergency department with 2 days of nausea and vomiting. On exam patient is chronically ill but acutely nontoxic appearing. She does have dry mucous membranes. Benign abdominal exam. Concern for metabolic/light disturbance, urinary tract infection, dehydration, other. At this time doubt acute emergent intra-abdominal process. Exam/history is not consistent with acute emergent intracranial process, sepsis, acute emergent vascular process. Plan for screening labs, UA, IV placement, IV fluid hydration, IV Zofran. Will monitor and reassess. Labs reviewed, lactate 2.4, mild leukocytosis, no anion gap. Patient reports feeling much improved after 1 L of IV fluid and IV Zofran, drink water without issue. Patient is stating that she feels ready to go home. Plan to repeat lactate, discussion with [facility] pipe organ mechanic-oncology. Repeat lactate 1.9. UA equivocal for UTI, no urinary symptoms, will hold abx pending culture. I discussed patient presentation, examination, and results with Dr. Amor of gynecologic oncology at [facility], who will relay information regarding patient's emergency visit to her oncology team, states no contraindication to Zofran except for 3 days after chemotherapy infusion. I had a lengthy discussion with patient regarding return to emergency department precautions, importance of outpatient follow-up with PCP and also with scheduled appointment with oncology tomorrow, and home care. Patient verbalized understanding of the plan was amenable. All questions were answered. Patient developed return of nausea just prior to discharge. No vomiting. Plan for continued IV fluid, reassessment. Pt signed out to Dr. Patel at time of hift change, reassessment pending. Medical Records Medical records reviewed: Yes I reviewed the patient's medical records. Lab Data Lab results reviewed: Yes I reviewed the patient's lab results. Labs: 05/30/19 11:40 Blood Blood Culture - Final NO GROWTH 120 HOURS 05/30/19 11:30 Blood Blood Culture - Final NO GROWTH 120 HOURS 05/30/19 12:10 Urine - Reflex from Ua Urine Culture - Final Escherichia coli Laboratory Tests Range/Units 05/30/19 05/30/19 05/30/19 11:00 11:00 11:00 WBC (4.4-10.8) k/cumm 13.79 H RBC (4.00-5.20) m/cumm 3.68 L Hgb (12.0-15.5) g/dL 11.2 L Hct (36.0-46.0) % 33.9 L MCV (80-95) fL 92.1 MCH (27.0-33.0) pg 30.4 MCHC (32.0-36.0) g/dL 33.0 RDW (11.7-14.6) % 16.1 H Plt Count (130-400) x1000/uL 239 MPV (8.0-11.0) fL 8.7 Immature Gran % 0.3 Neutrophils % 85.1 Lymphocytes % 3.6 Monocytes % 10.9 Eosinophils % 0.0 Basophils % 0.1 Absolute Neutrophils (1.2-6.7) k/cumm 11.74 H Absolute Lymphocytes (1.2-3.4) k/cumm 0.50 L Absolute Monocytes (0.11-0.7) k/cumm 1.50 H Absolute Eosinophils (0.0-0.7) k/cumm 0.00 Absolute Basophils (0.0-0.2) k/cumm 0.01 Sodium (136-145) mmol/L 138 Potassium (3.5-5.1) mmol/L 3.5 D Chloride (98-107) mmol/L 98 Carbon Dioxide (21.0-32.0) mmol/L 29.2 Anion Gap (3-11) mmol/L 10.8 BUN (7-18) mg/dL 21 H D Creatinine (0.55-1.02) mg/dL 0.82 Estimated GFR/1.73 m2 (mL/min/1.73m2) >= 60.00 Glucose (70-100) mg/dL 309 H D Lactate (0.6-1.4) mmol/L 2.4 H* Calcium (8.5-10.1) mg/dL 8.8 Total Bilirubin (0.2-1.0) mg/dL 0.5 AST (15-37) U/L 12 L ALT (14-59) U/L 18 Alkaline Phosphatase (46-116) U/L 72 Total Protein (6.4-8.2) g/dL 7.1 Albumin (3.4-5.0) g/dL 3.7 Lipase (73-393) U/L 73 Urine Color (Yellow) Urine Clarity (Clear) Urine pH (5-8) Ur Specific [place] (1.005-1.025) Urine Protein (Negative) mg/dL Urine Ketones (Negative) mg/dL Urine Blood (Negative) Urine Nitrite (Negative) Urine Bilirubin (Negative) Urine Urobilinogen (Up TO 0.2) EU/dL Ur Leukocyte Esterase (Negative) Urine RBC Urine WBC (0-5) HPF Ur Epithelial Cells (Negative) HPF Urine Crystals Urine Bacteria (Negative) HPF Urine Mucus Ur Culture Indicated? Urine Glucose (Negative) mg/dL Range/Units 05/30/19 05/30/19 12:10 13:23 WBC (4.4-10.8) k/cumm RBC (4.00-5.20) m/cumm Hgb (12.0-15.5) g/dL Hct (36.0-46.0) % MCV (80-95) fL MCH (27.0-33.0) pg MCHC (32.0-36.0) g/dL RDW (11.7-14.6) % Plt Count (130-400) x1000/uL MPV (8.0-11.0) fL Immature Gran % Neutrophils % Lymphocytes % Monocytes % Eosinophils % Basophils % Absolute Neutrophils (1.2-6.7) k/cumm Absolute Lymphocytes (1.2-3.4) k/cumm Absolute Monocytes (0.11-0.7) k/cumm Absolute Eosinophils (0.0-0.7) k/cumm Absolute Basophils (0.0-0.2) k/cumm Sodium (136-145) mmol/L Potassium (3.5-5.1) mmol/L Chloride (98-107) mmol/L Carbon Dioxide (21.0-32.0) mmol/L Anion Gap (3-11) mmol/L BUN (7-18) mg/dL Creatinine (0.55-1.02) mg/dL Estimated GFR/1.73 m2 (mL/min/1.73m2) Glucose (70-100) mg/dL Lactate (0.6-1.4) mmol/L 1.9 H Calcium (8.5-10.1) mg/dL Total Bilirubin (0.2-1.0) mg/dL AST (15-37) U/L ALT (14-59) U/L Alkaline Phosphatase (46-116) U/L Total Protein (6.4-8.2) g/dL Albumin (3.4-5.0) g/dL Lipase (73-393) U/L Urine Color (Yellow) Yellow Urine Clarity (Clear) Sl cloudy Urine pH (5-8) 5.5 Ur Specific [place] (1.005-1.025) 1.020 Urine Protein (Negative) mg/dL Negative Urine Ketones (Negative) mg/dL Negative Urine Blood (Negative) Trace-intact H Urine Nitrite (Negative) Negative Urine Bilirubin (Negative) Negative Urine Urobilinogen (Up TO 0.2) EU/dL 0.2 Ur Leukocyte Esterase (Negative) Trace H Urine RBC Not Applicable Urine WBC (0-5) HPF 20-50 H Ur Epithelial Cells (Negative) HPF Few Urine Crystals Not Applicable Urine Bacteria (Negative) HPF Many Urine Mucus Not Applicable Ur Culture Indicated? Yes Urine Glucose (Negative) mg/dL 500 H HPI General Mode of arrival: ambulatory. Date/Time Provider Initiated Documentation: 05/30/19 10:31. Limitations to Documentation: no limitations. Information obtained by: patient, family, RN notes reviewed and old records reviewed. HPI Narrative: Martha Linares is a 69-year-old woman with a history of insulin-dependent diabetes, hypertension, ovarian cancer presenting to the emergency department with vomiting. Patient reports that she underwent hysterectomy, oophorectomy, and bowel resection for cancer 11/05. Patient reports that she has undergone 7 chemotherapy infusions, with most recent infusion 3 weeks ago scheduled for eighth infusion tomorrow at [facility]. She has had no radiation. Patient reports that 2 days ago she developed nausea and vomiting. She reports that whenever she tries to eat or drink anything, she has immediate vomiting and has not held down any fluids since onset. Patient states that she has not had similar symptoms with chemotherapy in the past. She states that she measured a temp of 100.0 last night, and has had no fever otherwise. She denies having any pain and states that she does not currently feel nauseated. She has had very mild diarrhea, last bowel movement yesterday. No cough, shortness of breath, numbness, focal weakness, rash. No other recent illness. No recent travel. Related Data Home Medications Medication Instructions Recorded Confirmed aspirin [Aspirin Low-Strength] 81 mg PO DAILY tab-cap 01/10/13 05/30/19 glipizide 5 mg tablet, extended 5 mg PO DAILY #90 tab-cap 07/23/18 05/30/19 release 24 hr lancets 28 gauge #200 ea 07/23/18 03/17/19 lisinopril 10 mg tablet 10 mg PO DAILY #90 tab-cap 07/23/18 05/30/19 blood sugar diagnostic #200 ea 10/21/18 03/17/19 metformin 1,000 mg tablet 1,000 mg PO BID #180 tab-cap 10/21/18 05/30/19 metoprolol tartrate 25 mg tablet 12.5 mg PO BID tab 11/26/18 05/30/19 pantoprazole 40 mg tablet,delayed 40 mg PO DAILY 12/09/18 05/30/19 release insulin glargine 100 unit/mL (3 10 unit SC HS ml 02/01/19 05/30/19 mL) subcutaneous pen lorazepam 0.5 mg tablet 0.5 mg PO Q6H PRN PRN tab 02/01/19 03/17/19 ondansetron HCl 8 mg tablet 8 mg PO Q8H PRN PRN tab 02/01/19 05/30/19 prochlorperazine maleate 10 mg 10 mg PO Q6H PRN tab 02/01/19 05/30/19 tablet pen needle, diabetic 33 gauge x #100 each 03/15/19 03/17/1910/02 loratadine [Claritin] 10 mg PO DAILY 05/30/19 05/30/19 Previous Rx's Medication Instructions Recorded glipizide 5 mg tablet, extended 5 mg PO DAILY #90 tab-cap 07/23/18 release 24 hr lancets 28 gauge #200 ea 07/23/18 lisinopril 10 mg tablet 10 mg PO DAILY #90 tab-cap 07/23/18 blood sugar diagnostic #200 ea 10/21/18 metformin 1,000 mg tablet 1,000 mg PO BID #180 tab-cap 10/21/18 pen needle, diabetic 33 gauge x #100 each 03/15/1910/02 Allergies Allergy/AdvReac Type Severity Reaction Status Date / Time adhesive Allergy Severe Skin Rash Verified 05/30/19 10:22 General Stated Complaint: Nausea/Vomit/Diar SANJIV: 3 Review of Systems Narrative: Constitutional: denies fevers Eyes: denies eye pain ENT: denies facial pain, dental pain, sore throat Cardiovascular: denies chest pain Respiratory: denies SOB, cough GI: denies abdominal pain, reports vomiting, diarrhea : denies flank pain, dysuria, urinary frequency MSK: denies back pain, neck pain, arthralgias, myalgias Skin: denies rash Neuro: denies headaches, numbness, weakness PFSH Surgical History (Updated 12/09/18 @ 06:25 by Jong Walker) Hysterectomy, Laproscopic Family History Mother Alzheimer disease Father Personal history of malignant neoplasm COLON Stroke Sister Personal history of malignant neoplasm BREAST LUMP Grandmother Personal history of malignant neoplasm BREAST Sister Personal history of malignant neoplasm LUNG Son No problems noted. Son No problems noted. Social History Smoking/Tobacco Use Status: Never Second Hand Exposure: Yes Alcohol Intake: current Alcohol Intake frequency: a few times a week Substance use type: does not use What type of physical activity do you participate in: walking Frequency: 3-4 times per week Seatbelt use: always Do you feel safe in your relationship?: Yes Exam Narrative Exam Narrative: Constitutional: Chronically ill but acutely [id number], pleasant, conversing normally HENT: head atraumatic/normocephalic/normal inspection, mucous membranes dry Eyes: conjunctiva normal, sclera normal, pupils 3mm b/l Neck: no stridor, normal ROM, trachea midline Chest: normal inspection Resp: normal work of breathing, LCTAB Cardio: normal rate, normal rhythm, no murmur appreciated GI: abdomen soft, non-tender, non-distended, well-healed surgical scar Skin: warm, dry, normal color, no rash Neuro: alert, not altered, grossly non-focal, normal tone Ext: no edema, no posterior calf tenderness Psych: normal mood, normal affect, normal behavior Course Vital Signs Vital signs: Vital Signs Temperature 36.6 C 05/30/19 10:19 Pulse 105 H 05/30/19 10:19 Respiratory Rate 18 05/30/19 10:19 Blood Pressure 105/63 05/30/19 10:19 Pulse Oximetry 97 05/30/19 10:19 Temperature 36.6 C 05/30/19 10:19 Temperature Source Skin 05/30/19 10:19 Pulse 105 H 05/30/19 10:19 Respiratory Rate 18 05/30/19 10:19 Blood Pressure 105/63 05/30/19 10:19 Blood Pressure Position Sitting 05/30/19 10:19 Pulse Oximetry 97 05/30/19 10:19 Oxygen Delivery Method Room Air 05/30/19 10:19 Oxygen Flow Rate 0 05/30/19 10:19 Pain Level 3 05/30/19 10:19 Sign Out Sign Out Data: Sign Out Comment: Patient signed out to Dr. Patel at time shift change pending reassessment, anticipate discharge to home after Reglan. Last updated by Nathalie Mcgowan MD at 05/30/19 16:02
[2019-05-30] MEDS: Normal Saline 1,000 ML 1000 ML IV ×2 (11:07→13:31)
[2019-05-30 11:13] LABS: Lactate 2.4 mmol/L (0.6-1.4)
[2019-05-30 11:15] LABS: Abs Immature Grans 0.04 k/cumm (0.0-0.09); Absolute Basophil Count 0.01 k/cumm (0.0-0.2); Absolute Neutrophil Count 11.74 k/cumm (1.2-6.7); Basophils % 0.1; HCT 33.9 % (36.0-46.0); HGB 11.2 g/dL (12.0-15.5); Immature Grans % 0.3; Lymphocytes % 3.6; Mean Corpuscular Hemoglobin 30.4 pg (27.0-33.0); Mean Corpuscular Volume 92.1 fL (80-95); Mean Platelet Volume 8.7 fL (8.0-11.0); Monocytes % 10.9; Neutrophils % 85.1; Platelet Count 239 x1000/uL (130-400); RBC 3.68 m/cumm (4.00-5.20); RBC Distribution Width 16.1 % (11.7-14.6); White Blood Cell Count 13.79 k/cumm (4.4-10.8)
[2019-05-30 11:40] LABS: ALT 18 U/L (14-59); AST 12 U/L (15-37); Albumin 3.7 g/dL (3.4-5.0); Alkaline Phosphatase 72 U/L (46-116); Anion Gap 10.8 mmol/L (3-11); BUN 21 mg/dL (7-18); Bilirubin, Total 0.5 mg/dL (0.2-1.0); CO2 29.2 mmol/L (21.0-32.0); CREATININE 0.82 mg/dL (0.55-1.02); Calcium 8.8 mg/dL (8.5-10.1); Chloride 98 mmol/L (98-107); Glucose 309 mg/dL (70-100); Lipase 73 U/L (73-393); Potassium 3.5 mmol/L (3.5-5.1); Sodium 138 mmol/L (136-145); Total Protein 7.1 g/dL (6.4-8.2)
[2019-05-30] MEDS: Ondansetron 4 MG/2 ML VIAL IVP ×2 (12:13→14:58)
[2019-05-30 12:14] VITALS: BP 129/56; PULSE 92; RESP 20; TEMP 36.9; O2SAT 95
[2019-05-30 12:48] LABS: Bilirubin Negative (Negative); Blood Trace-intact (Negative); Clarity Sl Cloudy (Clear); Glucose 500 mg/dL (Negative); Ketones Negative (Negative); Leukocyte Esterase Trace (Negative); Nitrite Negative (Negative); Urobilinogen 0.2 EU/dL (Up TO 0.2); pH 5.5 (5-8)
[2019-05-30 13:01] LABS: Epithelial Cells Few HPF (Negative); WBC 20-50 HPF (0-5)
[2019-05-30 13:02] LABS: Bacteria Many HPF (Negative); C & S Indicated? Yes
[2019-05-30 13:16] VITALS: BP 133/65; PULSE 97; RESP 18; TEMP 37.1; O2SAT 96
[2019-05-30 13:30] LABS: Lactate 1.9 mmol/L (0.6-1.4)
[2019-05-30 15:02] VITALS: BP 146/77; PULSE 92; RESP 18; TEMP 36.7; O2SAT 95
[2019-05-30 15:16] VITALS: PULSE 97; RESP 20; TEMP 37; O2SAT 93
[2019-05-30] MEDS: Normal Saline 50 ML 200 ML (15:47)
[2019-05-30] MEDS: Metoclopramide 10 MG/2 ML VIAL IVP (15:47)
[2019-05-30] MEDS: Heparin 500 UNITS/5 ML SYRINGE (16:30)
[2019-05-30 16:41] VITALS: BP 150/73; PULSE 98; TEMP 36.7; O2SAT 96
--- NOTE | 2019-06-04 16:45 | W.ED.FU ---
 Urine culture received: ecoli >100,000, resistant to ampicillin, sensitive to cefazolin. I called patient and she notes nausea and vomiting resolve. No fever. No urinary symptoms. Given culture and immunosuppression, plan to start keflex 500mg TID x7days. Called script to Vinod Knott. Results sent to patient's oncologist who she is scheduled to follow-up with on Thursday. I encouraged her to return to the ER immediately for any worsening or new concerning symtptoms.
== END 2019-05-30 16:35 | disposition home or self-care (01) ==
PROVIDERS: Student in an Organized Health Care Education/Training Program; Emergency Provider Emergency Medicine; PCP Family Medicine
DX: R11.10 Vomiting, unspecified (principal); E86.0 Dehydration; Z98.890 Other specified postprocedural states; I10 Essential (primary) hypertension; E11.9 Type 2 diabetes mellitus without complications; Z79.4 Long term (current) use of insulin
CPT/HCPCS: 36415; 80053; 83690; 87040; 87077; 96361; 96374; 96375; 96376; 99284; 81003; 81015; 83605; 85025; 87086; 87186; J2405; J2765

== ENCOUNTER 2019-06-13 02:59 | Outpatient (RCR) | payer MEDICARE, MEDICAID, SELFPAY ==
[2019-05-24] MEDS: Heparin 500 UNITS/5 ML SYRINGE IV (11:50)
[2019-05-24] MEDS: Normal Saline Flush 10 ML SYR IVP (11:50)
[2019-05-24 12:03] LABS: Abs Immature Grans 0.06 k/cumm (0.0-0.09); Absolute Basophil Count 0.01 k/cumm (0.0-0.2); Absolute Eosinophil Count 0.03 k/cumm (0.0-0.7); Absolute Lymphocyte Count 1.39 k/cumm (1.2-3.4); Absolute Monocyte Count 0.86 k/cumm (0.11-0.7); Basophils % 0.1; Eosinophils % 0.4; HCT 35.3 % (36.0-46.0); HGB 11.8 g/dL (12.0-15.5); Immature Grans % 0.8; Lymphocytes % 17.7; Mean Corp. HGB Concentration 33.4 g/dL (32.0-36.0); Mean Corpuscular Hemoglobin 30.5 pg (27.0-33.0); Mean Corpuscular Volume 91.2 fL (80-95); Mean Platelet Volume 9.6 fL (8.0-11.0); Platelet Count 188 x1000/uL (130-400); RBC 3.87 m/cumm (4.00-5.20); RBC Distribution Width 15.8 % (11.7-14.6); White Blood Cell Count 7.85 k/cumm (4.4-10.8)
[2019-05-27] MEDS: Normal Saline Flush 10 ML SYR IVP (11:36)
[2019-05-27] MEDS: Heparin 500 UNITS/5 ML SYRINGE IV (11:37)
[2019-05-27 11:54] LABS: Abs Immature Grans 0.02 k/cumm (0.0-0.09); Absolute Basophil Count 0.01 k/cumm (0.0-0.2); Absolute Eosinophil Count 0.03 k/cumm (0.0-0.7); Absolute Lymphocyte Count 0.94 k/cumm (1.2-3.4); Absolute Monocyte Count 0.68 k/cumm (0.11-0.7); Absolute Neutrophil Count 3.51 k/cumm (1.2-6.7); Basophils % 0.2; Eosinophils % 0.6; HCT 33.2 % (36.0-46.0); HGB 10.8 g/dL (12.0-15.5); Immature Grans % 0.4; Lymphocytes % 18.1; Mean Corp. HGB Concentration 32.5 g/dL (32.0-36.0); Mean Corpuscular Hemoglobin 30.3 pg (27.0-33.0); Mean Corpuscular Volume 93.3 fL (80-95); Mean Platelet Volume 8.9 fL (8.0-11.0); Monocytes % 13.1; Neutrophils % 67.6; Platelet Count 183 x1000/uL (130-400); RBC 3.56 m/cumm (4.00-5.20); RBC Distribution Width 15.7 % (11.7-14.6); White Blood Cell Count 5.19 k/cumm (4.4-10.8)
[2019-05-27 11:59] LABS: ALT 19 U/L (14-59); AST 11 U/L (15-37); Albumin 3.5 g/dL (3.4-5.0); Alkaline Phosphatase 71 U/L (46-116); Anion Gap 8.8 mmol/L (3-11); BUN 9 mg/dL (7-18); Bilirubin, Total 0.2 mg/dL (0.2-1.0); CO2 26.2 mmol/L (21.0-32.0); CREATININE 0.62 mg/dL (0.55-1.02); Calcium 8.3 mg/dL (8.5-10.1); Chloride 102 mmol/L (98-107); Glucose 161 mg/dL (70-100); Potassium 4.5 mmol/L (3.5-5.1); Sodium 137 mmol/L (136-145); Total Protein 6.9 g/dL (6.4-8.2)
[2019-05-31 08:18] LABS: CA 125 48 U/mL (<30)
[2019-06-03 08:16] LABS: Abs Immature Grans 0.03 k/cumm (0.0-0.09); HCT 34.8 % (36.0-46.0); HGB 11.8 g/dL (12.0-15.5); Mean Corp. HGB Concentration 33.9 g/dL (32.0-36.0); Mean Corpuscular Hemoglobin 30.5 pg (27.0-33.0); Mean Corpuscular Volume 89.9 fL (80-95); Platelet Count 235 x1000/uL (130-400); RBC 3.87 m/cumm (4.00-5.20); RBC Distribution Width 15.5 % (11.7-14.6); White Blood Cell Count 8.05 k/cumm (4.4-10.8)
[2019-06-03 08:26] LABS: Absolute Eosinophil Count 0.08 k/cumm (0.0-0.7); Absolute Lymphocyte Count 1.05 k/cumm (1.2-3.4); Absolute Monocyte Count 1.37 k/cumm (0.11-0.7); Absolute Neutrophil Count 5.55 k/cumm (1.2-6.7); Diff Comment Manual Differential
[2019-06-03 08:27] LABS: Poikilocytes 1+; Schistocytes 1+
[2019-06-03 08:29] LABS: ALT 162 U/L (14-59); AST 64 U/L (15-37); Albumin 2.8 g/dL (3.4-5.0); Alkaline Phosphatase 63 U/L (46-116); Anion Gap 10.6 mmol/L (3-11); BUN 23 mg/dL (7-18); Bilirubin, Total 0.4 mg/dL (0.2-1.0); CO2 30.4 mmol/L (21.0-32.0); CREATININE 0.92 mg/dL (0.55-1.02); Calcium 7.3 mg/dL (8.5-10.1); Chloride 93 mmol/L (98-107); Glucose 129 mg/dL (70-100); Sodium 134 mmol/L (136-145); Total Protein 5.9 g/dL (6.4-8.2)
[2019-06-03] MEDS: Normal Saline Flush 10 ML SYR IVP (08:32)
[2019-06-03 08:40] LABS: Potassium 2.3 mmol/L (3.5-5.1)
[2019-06-03 12:23] LABS: Potassium 3.3 mmol/L (3.5-5.1)
[2019-06-06 10:37] LABS: CA 125 110 U/mL (<30)
[2019-06-13] MEDS: Heparin 500 UNITS/5 ML SYRINGE IV (13:28)
[2019-06-13] MEDS: Normal Saline Flush 10 ML SYR IVP (13:28)
[2019-06-13 13:41] LABS: HCT 31.7 % (36.0-46.0); HGB 10.4 g/dL (12.0-15.5); Mean Corp. HGB Concentration 32.8 g/dL (32.0-36.0); Mean Corpuscular Hemoglobin 30.5 pg (27.0-33.0); Mean Platelet Volume 10.9 fL (8.0-11.0); RBC 3.41 m/cumm (4.00-5.20); RBC Distribution Width 14.9 % (11.7-14.6); White Blood Cell Count 2.12 k/cumm (4.4-10.8)
[2019-06-13 14:04] LABS: ALT 32 U/L (14-59); AST 14 U/L (15-37); Absolute Lymphocyte Count 0.66 k/cumm (1.2-3.4); Absolute Monocyte Count 0.51 k/cumm (0.11-0.7); Absolute Neutrophil Count 0.95 k/cumm (1.2-6.7); Albumin 3.1 g/dL (3.4-5.0); Alkaline Phosphatase 67 U/L (46-116); Anion Gap 12.7 mmol/L (3-11); Atypical Lymphocytes % 1; BUN 8 mg/dL (7-18); Bilirubin, Total 0.4 mg/dL (0.2-1.0); CO2 24.3 mmol/L (21.0-32.0); CREATININE 0.72 mg/dL (0.55-1.02); Calcium 7.4 mg/dL (8.5-10.1); Chloride 98 mmol/L (98-107); Glucose 189 mg/dL (74-106); Potassium 4.2 mmol/L (3.5-5.1); Sodium 135 mmol/L (136-145); Total Protein 6.6 g/dL (6.4-8.2)
[2019-06-13 14:07] LABS: Anisocytosis 1+; Diff Comment Manual Differential; Platelet Count 129 x1000/uL (130-400); Poikilocytes 1+; Polychromasia Present
== END 2019-06-18 23:59 | disposition home or self-care (01) ==
LOC: INF 02:59
PROVIDERS: PCP Family Medicine; Visit Provider Obstetrics & Gynecology Gynecologic Oncology
DX: C48.2 Malignant neoplasm of peritoneum, unspecified (principal); Z45.2 Encounter for adjustment and management of vascular access device
CPT/HCPCS: 36591; 80053; 86304; 84132; 85025

== ENCOUNTER 2019-07-15 04:51 | Outpatient (RCR) | payer MEDICARE, MEDICAID, SELFPAY ==
[2019-06-20] MEDS: Normal Saline Flush 10 ML SYR IVP (11:50)
[2019-06-20] MEDS: Heparin 500 UNITS/5 ML SYRINGE IV (11:51)
[2019-06-20 12:10] LABS: Abs Immature Grans 0.13 k/cumm (0.0-0.09); Absolute Basophil Count 0.03 k/cumm (0.0-0.2); Absolute Eosinophil Count 0.04 k/cumm (0.0-0.7); Absolute Lymphocyte Count 1.31 k/cumm (1.2-3.4); Absolute Monocyte Count 1.11 k/cumm (0.11-0.7); Absolute Neutrophil Count 7.89 k/cumm (1.2-6.7); Basophils % 0.3; Eosinophils % 0.4; HCT 33.3 % (36.0-46.0); HGB 10.6 g/dL (12.0-15.5); Immature Grans % 1.2; Lymphocytes % 12.5; Mean Corp. HGB Concentration 31.8 g/dL (32.0-36.0); Mean Corpuscular Hemoglobin 30.1 pg (27.0-33.0); Mean Corpuscular Volume 94.6 fL (80-95); Mean Platelet Volume 9.9 fL (8.0-11.0); Monocytes % 10.6; Platelet Count 224 x1000/uL (130-400); RBC 3.52 m/cumm (4.00-5.20); RBC Distribution Width 15.8 % (11.7-14.6); White Blood Cell Count 10.51 k/cumm (4.4-10.8)
[2019-06-24] MEDS: Normal Saline Flush 10 ML SYR IVP (11:49)
[2019-06-24] MEDS: Heparin 500 UNITS/5 ML SYRINGE IV (11:50)
[2019-06-24 12:07] LABS: Abs Immature Grans 0.07 k/cumm (0.0-0.09); Absolute Basophil Count 0.01 k/cumm (0.0-0.2); Absolute Eosinophil Count 0.04 k/cumm (0.0-0.7); Absolute Lymphocyte Count 1.06 k/cumm (1.2-3.4); Absolute Monocyte Count 0.72 k/cumm (0.11-0.7); Absolute Neutrophil Count 3.97 k/cumm (1.2-6.7); Basophils % 0.2; Eosinophils % 0.7; HCT 34.1 % (36.0-46.0); HGB 10.8 g/dL (12.0-15.5); Immature Grans % 1.2; Lymphocytes % 18.1; Mean Corp. HGB Concentration 31.7 g/dL (32.0-36.0); Mean Corpuscular Hemoglobin 30.2 pg (27.0-33.0); Mean Corpuscular Volume 95.3 fL (80-95); Mean Platelet Volume 9.1 fL (8.0-11.0); Monocytes % 12.3; Neutrophils % 67.5; Platelet Count 293 x1000/uL (130-400); RBC 3.58 m/cumm (4.00-5.20); White Blood Cell Count 5.87 k/cumm (4.4-10.8)
[2019-06-24 12:45] LABS: ALT 16 U/L (14-59); AST 14 U/L (15-37); Albumin 3.3 g/dL (3.4-5.0); Alkaline Phosphatase 77 U/L (46-116); Anion Gap 10.9 mmol/L (3-11); BUN 7 mg/dL (7-18); Bilirubin, Total 0.1 mg/dL (0.2-1.0); CO2 27.1 mmol/L (21.0-32.0); CREATININE 0.59 mg/dL (0.55-1.02); Calcium 8.1 mg/dL (8.5-10.1); Chloride 102 mmol/L (98-107); Glucose 227 mg/dL (74-106); Potassium 4.4 mmol/L (3.5-5.1); Sodium 140 mmol/L (136-145); Total Protein 7.3 g/dL (6.4-8.2)
[2019-06-27 12:51] LABS: CA 125 98 U/mL (<30)
[2019-07-05] MEDS: Heparin 500 UNITS/5 ML SYRINGE IV (12:06)
[2019-07-05] MEDS: Normal Saline Flush 10 ML SYR IVP (12:06)
[2019-07-05 12:11] LABS: HCT 32.1 % (36.0-46.0); HGB 10.2 g/dL (12.0-15.5); Mean Corp. HGB Concentration 31.8 g/dL (32.0-36.0); Mean Corpuscular Hemoglobin 30.4 pg (27.0-33.0); Mean Corpuscular Volume 95.5 fL (80-95); Mean Platelet Volume 9.9 fL (8.0-11.0); Platelet Count 175 x1000/uL (130-400); RBC 3.36 m/cumm (4.00-5.20); RBC Distribution Width 15.4 % (11.7-14.6); White Blood Cell Count 4.78 k/cumm (4.4-10.8)
[2019-07-05 12:42] LABS: Absolute Basophil Count 0.05 k/cumm (0.0-0.2); Absolute Lymphocyte Count 0.62 k/cumm (1.2-3.4); Absolute Monocyte Count 0.86 k/cumm (0.11-0.7); Absolute Neutrophil Count 3.15 k/cumm (1.2-6.7); Diff Comment Manual Differential
[2019-07-05 12:43] LABS: Howell-Jolly Bodies Present; Poikilocytes 1+
[2019-07-12 11:24] LABS: Abs Immature Grans 0.03 k/cumm (0.0-0.09); Absolute Basophil Count 0.01 k/cumm (0.0-0.2); Absolute Eosinophil Count 0.01 k/cumm (0.0-0.7); Absolute Monocyte Count 0.97 k/cumm (0.11-0.7); Absolute Neutrophil Count 5.37 k/cumm (1.2-6.7); Basophils % 0.1; Eosinophils % 0.1; HCT 30.7 % (36.0-46.0); HGB 9.7 g/dL (12.0-15.5); Immature Grans % 0.4; Lymphocytes % 12.3; Mean Corp. HGB Concentration 31.6 g/dL (32.0-36.0); Mean Corpuscular Hemoglobin 30.4 pg (27.0-33.0); Mean Corpuscular Volume 96.2 fL (80-95); Mean Platelet Volume 9.2 fL (8.0-11.0); Monocytes % 13.3; Neutrophils % 73.8; Platelet Count 121 x1000/uL (130-400); RBC 3.19 m/cumm (4.00-5.20); RBC Distribution Width 16.6 % (11.7-14.6); White Blood Cell Count 7.29 k/cumm (4.4-10.8)
[2019-07-12] MEDS: Heparin 500 UNITS/5 ML SYRINGE IV (11:35)
[2019-07-12] MEDS: Normal Saline Flush 10 ML SYR IVP (11:35)
[2019-07-15 11:55] LABS: Abs Immature Grans 0.02 k/cumm (0.0-0.09); Absolute Basophil Count 0.01 k/cumm (0.0-0.2); Absolute Eosinophil Count 0.01 k/cumm (0.0-0.7); Absolute Lymphocyte Count 1.03 k/cumm (1.2-3.4); Absolute Neutrophil Count 4.44 k/cumm (1.2-6.7); Basophils % 0.2; Eosinophils % 0.2; HCT 33.6 % (36.0-46.0); HGB 10.7 g/dL (12.0-15.5); Immature Grans % 0.3; Lymphocytes % 16.1; Mean Corp. HGB Concentration 31.8 g/dL (32.0-36.0); Mean Corpuscular Hemoglobin 30.5 pg (27.0-33.0); Mean Corpuscular Volume 95.7 fL (80-95); Mean Platelet Volume 9.2 fL (8.0-11.0); Neutrophils % 69.2; Platelet Count 141 x1000/uL (130-400); RBC 3.51 m/cumm (4.00-5.20); RBC Distribution Width 16.6 % (11.7-14.6); White Blood Cell Count 6.41 k/cumm (4.4-10.8)
[2019-07-15 12:05] LABS: ALT 15 U/L (14-59); AST 12 U/L (15-37); Albumin 3.7 g/dL (3.4-5.0); Alkaline Phosphatase 83 U/L (46-116); Anion Gap 13.3 mmol/L (3-11); BUN 6 mg/dL (7-18); Bilirubin, Total 0.3 mg/dL (0.2-1.0); CO2 25.7 mmol/L (21.0-32.0); CREATININE 0.65 mg/dL (0.55-1.02); Chloride 101 mmol/L (98-107); Glucose 233 mg/dL (74-106); Potassium 4.6 mmol/L (3.5-5.1); Sodium 140 mmol/L (136-145); Total Protein 7.9 g/dL (6.4-8.2)
[2019-07-15] MEDS: Normal Saline Flush 10 ML SYR IVP (13:01)
[2019-07-15] MEDS: Heparin 500 UNITS/5 ML SYRINGE IV (13:01)
[2019-07-18 11:08] LABS: CA 125 43 U/mL (<30)
== END 2019-07-19 23:59 | disposition home or self-care (01) ==
LOC: INF 04:51
PROVIDERS: PCP Family Medicine; Visit Provider Obstetrics & Gynecology Gynecologic Oncology
DX: C48.2 Malignant neoplasm of peritoneum, unspecified (principal); Z45.2 Encounter for adjustment and management of vascular access device
CPT/HCPCS: 36591; 80053; 86304; 85025

== ENCOUNTER 2019-08-12 00:40 | Outpatient (CLI) | payer MEDICARE, MEDICAID, SELFPAY ==
[2019-08-12] MEDS: Omnipaque 350 MG/ML 50 ML BTL PO (07:24)
[2019-08-12] MEDS: Breeza Beverage 473 ML BTL PO ×2 (07:24→07:25)
--- NOTE | 2019-08-12 09:35 | DI.CT_ITS ---
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 COMPARISON: CT ABDOMEN PELVIS W from 10/04/2018 FINDINGS: Current examination is compared with prior study of 10/04/2018. Lungs are clear with an incidental 4 millimeter fissural nodule on the right. No mediastinal or hannah r adenopathy. No pleural effusion. Tracheobronchial tree appears intact. No evidence of pulmonary embolic disease. Unremarkable appearance of the thoracic aorta. Liver and spleen are normal appearance. Pancreas appears normal. Cholelithiasis is noted, no biliar y dilatation. Adrenals and kidneys are unremarkable. No abdominal aortic aneurysm or major vascular abnormality of the abdomen or pelvis. Previously noted ascites seen on study of September 2018 has essentially resolved. Anastomotic sutures noted in the sigmoid colon. Ventral hernia containing unobstructed bowel loops noted. Question subt le bowel wall thickening on a diffuse basis, no focal mass identified. No significant mesenteric ad enopathy. Question thickening of vagina and perivaginal tissues, cervical mass not excluded. Findings at this level are slightly more prominent than on prior study and there is question of slight increased pelvi c sidewall extension. IMPRESSION: No evidence of thoracic or abdominal metastatic disease. Poorly defined abnormalities of inferior pe lvis, question post surgical versus recurrence or increased mass. Please correlate clinically.
[2019-08-12] MEDS: Normal Saline - Diluent 50 ML VIAL IV (09:41)
[2019-08-12] MEDS: Omnipaque 350 MG/ML 100 ML BTL IJ (09:42)
== END 2019-08-12 01:00 ==
PROVIDERS: PCP Family Medicine; Visit Provider Obstetrics & Gynecology Gynecologic Oncology
DX: C48.1 Malignant neoplasm of specified parts of peritoneum (principal); R91.1 Solitary pulmonary nodule; K80.20 Calculus of gallbladder without cholecystitis without obstruction; N89.8 Other specified noninflammatory disorders of vagina
CPT/HCPCS: 36591; 74177; 71260; 82565; J3490; Q9967

== ENCOUNTER 2019-08-12 05:22 | Outpatient (RCR) | payer MEDICARE, MEDICAID, SELFPAY ==
[2019-07-26] MEDS: Heparin 500 UNITS/5 ML SYRINGE IV (11:40)
[2019-07-26] MEDS: Normal Saline Flush 10 ML SYR IVP (11:40)
[2019-07-26 12:06] LABS: HCT 28.6 % (36.0-46.0); HGB 9.3 g/dL (12.0-15.5); Mean Corp. HGB Concentration 32.5 g/dL (32.0-36.0); Mean Corpuscular Hemoglobin 31.1 pg (27.0-33.0); Mean Corpuscular Volume 95.7 fL (80-95); Mean Platelet Volume 10.3 fL (8.0-11.0); RBC 2.99 m/cumm (4.00-5.20); RBC Distribution Width 15.2 % (11.7-14.6); White Blood Cell Count 2.22 k/cumm (4.4-10.8)
[2019-07-26 12:19] LABS: Absolute Lymphocyte Count 0.75 k/cumm (1.2-3.4); Platelet Count 62 x1000/uL (130-400)
[2019-07-26 12:20] LABS: Absolute Eosinophil Count 0.07 k/cumm (0.0-0.7); Diff Comment Manual Differential
[2019-07-26 12:21] LABS: Poikilocytes 1+
[2019-08-02] MEDS: Heparin 500 UNITS/5 ML SYRINGE IV (11:43)
[2019-08-02] MEDS: Normal Saline Flush 10 ML SYR IVP (11:43)
[2019-08-02 12:08] LABS: Abs Immature Grans 0.03 k/cumm (0.0-0.09); Absolute Lymphocyte Count 0.91 k/cumm (1.2-3.4); Absolute Monocyte Count 0.72 k/cumm (0.11-0.7); HCT 28.6 % (36.0-46.0); HGB 9.3 g/dL (12.0-15.5); Immature Grans % 0.5 %; Lymphocytes % 14.5; Mean Corp. HGB Concentration 32.5 g/dL (32.0-36.0); Mean Corpuscular Hemoglobin 31.6 pg (27.0-33.0); Mean Corpuscular Volume 97.3 fL (80-95); Mean Platelet Volume 11.2 fL (8.0-11.0); Monocytes % 11.5; Neutrophils % 73.5; RBC 2.94 m/cumm (4.00-5.20); RBC Distribution Width 16.4 % (11.7-14.6); White Blood Cell Count 6.26 k/cumm (4.4-10.8)
[2019-08-02 12:54] LABS: Diff Comment Diff Reviewed; Platelet Count 64 x1000/uL (130-400)
[2019-08-02 12:56] LABS: Hypochromasia 2+; Polychromasia Present
[2019-08-02 12:57] LABS: Poikilocytes 2+
[2019-08-08] MEDS: Normal Saline Flush 10 ML SYR IVP (11:02)
[2019-08-08] MEDS: Heparin 500 UNITS/5 ML SYRINGE IV (11:02)
[2019-08-08 11:18] LABS: Abs Immature Grans 0.01 k/cumm (0.0-0.09); Absolute Basophil Count 0.01 k/cumm (0.0-0.2); Absolute Lymphocyte Count 0.84 k/cumm (1.2-3.4); Absolute Monocyte Count 0.76 k/cumm (0.11-0.7); Absolute Neutrophil Count 3.58 k/cumm (1.2-6.7); Basophils % 0.2; HCT 29.5 % (36.0-46.0); HGB 9.6 g/dL (12.0-15.5); Immature Grans % 0.2 %; Lymphocytes % 16.2; Mean Corp. HGB Concentration 32.5 g/dL (32.0-36.0); Mean Corpuscular Hemoglobin 32.3 pg (27.0-33.0); Mean Corpuscular Volume 99.3 fL (80-95); Mean Platelet Volume 10.3 fL (8.0-11.0); Monocytes % 14.6; Neutrophils % 68.8; RBC 2.97 m/cumm (4.00-5.20); RBC Distribution Width 17.2 % (11.7-14.6)
[2019-08-08 11:40] LABS: ALT 15 U/L (14-59); AST 13 U/L (15-37); Albumin 3.7 g/dL (3.4-5.0); Alkaline Phosphatase 59 U/L (46-116); Anion Gap 10.7 mmol/L (3-11); BUN 11 mg/dL (7-18); Bilirubin, Total 0.4 mg/dL (0.2-1.0); CO2 24.3 mmol/L (21.0-32.0); CREATININE 0.62 mg/dL (0.55-1.02); Chloride 101 mmol/L (98-107); Glucose 129 mg/dL (74-106); Potassium 5.2 mmol/L (3.5-5.1); Sodium 136 mmol/L (136-145); Total Protein 7.1 g/dL (6.4-8.2)
[2019-08-08 11:47] LABS: Platelet Count 88 x1000/uL (130-400)
[2019-08-08 11:48] LABS: Anisocytosis 2+; Diff Comment RBC Morph Reviewed; Poikilocytes 2+; Polychromasia Present
[2019-08-09 10:57] LABS: CA 125 31 U/mL (<30)
[2019-08-12 07:47] LABS: CREATININE 0.52 mg/dL (0.55-1.02)
[2019-08-12] MEDS: Normal Saline Flush 10 ML SYR IVP (08:10)
[2019-08-12] MEDS: Heparin 500 UNITS/5 ML SYRINGE IV (08:11)
== END 2019-08-19 23:59 | disposition home or self-care (01) ==
LOC: INF 05:22
PROVIDERS: PCP Family Medicine; Visit Provider Obstetrics & Gynecology Gynecologic Oncology
DX: C48.2 Malignant neoplasm of peritoneum, unspecified (principal); Z45.2 Encounter for adjustment and management of vascular access device
CPT/HCPCS: 36591; 80053; 86304; 82565; 85025

== ENCOUNTER 2019-08-22 11:34 | Outpatient (RCR) | payer MEDICARE, MEDICAID, SELFPAY ==
[2019-08-22] MEDS: Normal Saline Flush 10 ML SYR IVP (11:52)
[2019-08-22] MEDS: Heparin 500 UNITS/5 ML SYRINGE IVP (11:53)
[2019-08-22 12:06] LABS: HCT 30.6 % (36.0-46.0); HGB 9.7 g/dL (12.0-15.5); Mean Corp. HGB Concentration 31.7 g/dL (32.0-36.0); Mean Corpuscular Hemoglobin 31.6 pg (27.0-33.0); Mean Corpuscular Volume 99.7 fL (80-95); Mean Platelet Volume 11.2 fL (8.0-11.0); Platelet Count 104 x1000/uL (130-400); RBC 3.07 m/cumm (4.00-5.20); RBC Distribution Width 15.9 % (11.7-14.6); White Blood Cell Count 2.65 k/cumm (4.4-10.8)
[2019-08-22 13:04] LABS: Absolute Lymphocyte Count 0.98 k/cumm (1.2-3.4); Absolute Monocyte Count 0.45 k/cumm (0.11-0.7); Absolute Neutrophil Count 1.22 k/cumm (1.2-6.7); Atypical Lymphocytes % 1
[2019-08-22 13:05] LABS: Diff Comment Manual Differential; Poikilocytes 1+
== END 2019-09-17 23:59 | disposition home or self-care (01) ==
LOC: INF 11:34
PROVIDERS: PCP Family Medicine; Visit Provider Obstetrics & Gynecology Gynecologic Oncology
DX: C48.2 Malignant neoplasm of peritoneum, unspecified (principal); Z45.2 Encounter for adjustment and management of vascular access device
CPT/HCPCS: 36591; 85025

== ENCOUNTER 2019-09-05 02:35 | Outpatient (RCR) | payer MEDICARE, MEDICAID, SELFPAY ==
[2019-08-29] MEDS: Normal Saline Flush 10 ML SYR IVP (11:20)
[2019-08-29] MEDS: Heparin 500 UNITS/5 ML SYRINGE IV (11:20)
[2019-08-29 11:36] LABS: Abs Immature Grans 0.08 k/cumm (0.0-0.09); Absolute Basophil Count 0.02 k/cumm (0.0-0.2); Absolute Eosinophil Count 0.01 k/cumm (0.0-0.7); Absolute Lymphocyte Count 0.92 k/cumm (1.2-3.4); Absolute Monocyte Count 0.88 k/cumm (0.11-0.7); Absolute Neutrophil Count 5.33 k/cumm (1.2-6.7); Basophils % 0.3; Eosinophils % 0.1; HGB 9.7 g/dL (12.0-15.5); Immature Grans % 1.1 %; Lymphocytes % 12.7; Mean Corp. HGB Concentration 32.3 g/dL (32.0-36.0); Mean Corpuscular Hemoglobin 32.2 pg (27.0-33.0); Mean Corpuscular Volume 99.7 fL (80-95); Mean Platelet Volume 10.4 fL (8.0-11.0); Monocytes % 12.2; Neutrophils % 73.6; Platelet Count 152 x1000/uL (130-400); RBC 3.01 m/cumm (4.00-5.20); RBC Distribution Width 16.2 % (11.7-14.6); White Blood Cell Count 7.24 k/cumm (4.4-10.8)
[2019-08-29 12:22] LABS: Anisocytosis 2+; Diff Comment RBC Morph Reviewed; Polychromasia Present
[2019-08-29 12:23] LABS: Poikilocytes 1+
[2019-09-05] MEDS: Heparin 500 UNITS/5 ML SYRINGE IV (11:56)
[2019-09-05] MEDS: Normal Saline Flush 10 ML SYR IVP (11:56)
[2019-09-05 12:02] LABS: Abs Immature Grans 0.03 k/cumm (0.0-0.09); Absolute Basophil Count 0.01 k/cumm (0.0-0.2); Absolute Eosinophil Count 0.01 k/cumm (0.0-0.7); Absolute Lymphocyte Count 1.01 k/cumm (1.2-3.4); Absolute Monocyte Count 0.91 k/cumm (0.11-0.7); Basophils % 0.1; Eosinophils % 0.1; HCT 30.8 % (36.0-46.0); HGB 9.8 g/dL (12.0-15.5); Immature Grans % 0.4 %; Lymphocytes % 12.7; Mean Corp. HGB Concentration 31.8 g/dL (32.0-36.0); Mean Corpuscular Hemoglobin 31.9 pg (27.0-33.0); Mean Corpuscular Volume 100.3 fL (80-95); Mean Platelet Volume 9.3 fL (8.0-11.0); Monocytes % 11.4; Neutrophils % 75.3; Platelet Count 208 x1000/uL (130-400); RBC 3.07 m/cumm (4.00-5.20); RBC Distribution Width 16.2 % (11.7-14.6); White Blood Cell Count 7.97 k/cumm (4.4-10.8)
[2019-09-05 12:23] LABS: ALT 14 U/L (14-59); AST 10 U/L (15-37); Albumin 3.5 g/dL (3.4-5.0); Alkaline Phosphatase 67 U/L (46-116); Anion Gap 13.3 mmol/L (3-11); BUN 9 mg/dL (7-18); Bilirubin, Total 0.2 mg/dL (0.2-1.0); CO2 22.7 mmol/L (21.0-32.0); CREATININE 0.75 mg/dL (0.55-1.02); Calcium 8.5 mg/dL (8.5-10.1); Chloride 100 mmol/L (98-107); Glucose 191 mg/dL (74-106); Potassium 4.6 mmol/L (3.5-5.1); Sodium 136 mmol/L (136-145); Total Protein 7.1 g/dL (6.4-8.2)
[2019-09-06 09:57] LABS: CA 125 51 U/mL (<30)
== END 2019-09-17 23:59 | disposition home or self-care (01) ==
LOC: INF 02:35
PROVIDERS: PCP Family Medicine; Visit Provider Obstetrics & Gynecology Gynecologic Oncology
DX: C48.2 Malignant neoplasm of peritoneum, unspecified (principal); Z45.2 Encounter for adjustment and management of vascular access device
CPT/HCPCS: 36591; 80053; 86304; 85025

== ENCOUNTER 2019-10-04 10:18 | Outpatient (RCR) | payer MEDICARE, MEDICAID, SELFPAY ==
[2019-10-04] MEDS: Heparin 500 UNITS/5 ML SYRINGE (10:35)
[2019-10-04] MEDS: Normal Saline Flush 10 ML SYR IVP (14:37)
== END 2019-10-18 23:59 | disposition home or self-care (01) ==
LOC: INF 10:18
PROVIDERS: PCP Family Medicine; Visit Provider Obstetrics & Gynecology Gynecologic Oncology
DX: Z45.2 Encounter for adjustment and management of vascular access device (principal)
CPT/HCPCS: 96523

== ENCOUNTER 2019-11-15 00:38 | Outpatient (RCR) | payer MEDICARE, MEDICAID, SELFPAY ==
[2019-11-15] MEDS: Normal Saline Flush 10 ML SYR IVP (11:39)
[2019-11-15] MEDS: Heparin 500 UNITS/5 ML SYRINGE IV (11:39)
== END 2019-11-17 23:59 | disposition home or self-care (01) ==
LOC: INF 00:38
PROVIDERS: PCP Family Medicine; Visit Provider Obstetrics & Gynecology Gynecologic Oncology
DX: Z45.2 Encounter for adjustment and management of vascular access device (principal)
CPT/HCPCS: 96523

== ENCOUNTER 2020-01-12 11:00 | Outpatient (RCR) | payer MEDICARE, MEDICAID, SELFPAY ==
[2019-12-20] MEDS: Normal Saline Flush 10 ML SYR IVP (11:50)
[2019-12-20] MEDS: Heparin 500 UNITS/5 ML SYRINGE IV (11:51)
[2020-01-12] MEDS: Heparin 500 UNITS/5 ML SYRINGE IV (11:01)
[2020-01-12] MEDS: Normal Saline Flush 10 ML SYR IVP (11:01)
== END 2020-01-17 23:59 | disposition home or self-care (01) ==
LOC: INF 11:00
PROVIDERS: PCP Family Medicine; Visit Provider Obstetrics & Gynecology Gynecologic Oncology
DX: Z45.2 Encounter for adjustment and management of vascular access device (principal)
CPT/HCPCS: 96523

== ENCOUNTER 2020-02-09 00:51 | Outpatient (RCR) | payer MEDICARE, MEDICAID, SELFPAY ==
[2020-02-09] MEDS: Normal Saline Flush 10 ML SYR IVP (10:50)
[2020-02-09] MEDS: Heparin 500 UNITS/5 ML SYRINGE IV (10:51)
== END 2020-02-17 23:59 | disposition home or self-care (01) ==
LOC: INF 00:51
PROVIDERS: PCP Family Medicine; Visit Provider Internal Medicine Hematology & Oncology
DX: Z45.2 Encounter for adjustment and management of vascular access device (principal)
CPT/HCPCS: 96523

== ENCOUNTER 2020-03-07 01:58 | Outpatient (RCR) | payer MEDICARE, MEDICAID, SELFPAY ==
[2020-03-07] MEDS: Heparin 500 UNITS/5 ML SYRINGE IV (10:31)
[2020-03-07] MEDS: Normal Saline Flush 10 ML SYR IVP (10:31)
== END 2020-03-19 23:59 | disposition home or self-care (01) ==
LOC: INF 01:58
PROVIDERS: PCP Family Medicine; Visit Provider Internal Medicine Hematology & Oncology
DX: Z45.2 Encounter for adjustment and management of vascular access device (principal)
CPT/HCPCS: 96523

== ENCOUNTER 2020-04-17 13:37 | Outpatient (CLI) | payer MEDICARE, MEDICAID, SELFPAY ==
--- NOTE | 2020-04-17 12:45 | DI.RAD_ITS ---
EXAM: XR CHEST 2V PA LATERAL CLINICAL HISTORY: EXTRAOVARIAN PRIMARY PERITONEAL CARCINOMA, H/O PLEURAL EFFUSION, C/O COUGH TECHNIQUE: 2D digital imaging was performed. COMPARISON: CT CT CHEST/ABD/PEL W from 08/12/2019 FINDINGS: There is a large left pleural effusion. A small portion of the left lung apex is aerated. There is no mediastinal shift. A port is noted over the right upper chest with the tip in the SVC. The right lung appears clear. Cardiac silhouette it is partially obscured by the effusion. No thoracic compr ession fractures are seen. IMPRESSION: Large left pleural effusion.
== END 2020-04-17 13:57 ==
PROVIDERS: PCP Family Medicine; Visit Provider Obstetrics & Gynecology Gynecologic Oncology
DX: J90 Pleural effusion, not elsewhere classified (principal)
CPT/HCPCS: 71046

== ENCOUNTER 2020-05-14 01:10 | Outpatient (RCR) | payer MEDICARE, MEDICAID, SELFPAY ==
[2020-04-23 10:42] LABS: Absolute Basophil Count 0.03 10^3/uL (0.0-0.2); Absolute Eosinophil Count 0.18 10^3/uL (0.0-0.7); Absolute Lymphocyte Count 0.86 10^3/uL (1.2-3.4); Absolute Monocyte Count 0.72 10^3/uL (0.1-0.8); Basophils % 0.3; Eosinophils % 2.1; HCT 35.9 % (36.0-46.0); HGB 11.3 g/dL (11.2-15.7); Immature Grans % 1.2; Lymphocytes % 9.9; MCH 27.7 pg (27.0-33.0); MCHC 31.5 % (32.0-36.0); MPV 8.7 fL (8.0-11.0); Monocytes % 8.3; Neutrophils % 78.2; Nucleated RBC 0 %; Platelet Count 357 10^3/uL (130-400); RBC 4.08 10^6/uL (3.93-5.22); RDW 15.2 % (11.7-14.6); RDW-SD 48.5 fL; WBC 8.69 10^3/uL (4.4-10.8)
[2020-05-01 11:29] LABS: HCT 33.1 % (36.0-46.0); HGB 10.5 g/dL (11.2-15.7); MCH 27.6 pg (27.0-33.0); MCHC 31.7 % (32.0-36.0); MCV 86.9 fL (80-95); MPV 10.3 fL (8.0-11.0); Nucleated RBC 0 %; Platelet Count 141 10^3/uL (130-400); RBC 3.81 10^6/uL (3.93-5.22); RDW 14.9 % (11.7-14.6); RDW-SD 47.7 fL; WBC 11.14 10^3/uL (4.4-10.8)
[2020-05-01 12:04] LABS: Absolute Eosinophil Count 0.11 10^3/uL (0.0-0.7); Absolute Lymphocyte Count 1.34 10^3/uL (1.2-3.4); Absolute Monocyte Count 0.78 10^3/uL (0.1-0.8); Absolute Neutrophil Count 8.13 10^3/uL (1.2-6.7); Bands % 19; Diff Comment Manual Differential; Metamyelocytes % 4; Myelocytes % 3
[2020-05-01 12:05] LABS: Hypochromasia 1+; Polychromasia Present
[2020-05-01] MEDS: Normal Saline Flush 10 ML SYR IVP (12:43)
[2020-05-01] MEDS: Heparin 500 UNITS/5 ML SYRINGE IV (14:50)
[2020-05-08] MEDS: Normal Saline Flush 10 ML SYR IVP (11:42)
[2020-05-08] MEDS: Heparin 500 UNITS/5 ML SYRINGE IV (11:42)
[2020-05-08 11:52] LABS: Abs Immature Grans 0.34 10^3/uL (0.0-0.06); Absolute Basophil Count 0.11 10^3/uL (0.0-0.2); Absolute Eosinophil Count 0.06 10^3/uL (0.0-0.7); Absolute Lymphocyte Count 1.22 10^3/uL (1.2-3.4); Absolute Monocyte Count 1.26 10^3/uL (0.1-0.8); Basophils % 0.9; Eosinophils % 0.5; HCT 34.2 % (36.0-46.0); HGB 10.9 g/dL (11.2-15.7); Immature Grans % 2.7; Lymphocytes % 9.6; MCH 27.7 pg (27.0-33.0); MCHC 31.9 % (32.0-36.0); MCV 86.8 fL (80-95); MPV 10.6 fL (8.0-11.0); Monocytes % 9.9; Neutrophils % 76.4; Nucleated RBC 0 %; Platelet Count 180 10^3/uL (130-400); RBC 3.94 10^6/uL (3.93-5.22); RDW 16.5 % (11.7-14.6); WBC 12.73 10^3/uL (4.4-10.8)
[2020-05-08 11:58] LABS: Absolute Neutrophil Count 9.73 10^3/uL (1.2-6.7)
[2020-05-08 12:25] LABS: ALT 16 U/L (14-59); AST 10 U/L (15-37); Albumin 3.3 g/dL (3.4-5.0); Alkaline Phosphatase 111 U/L (46-116); Anion Gap 11.3 mmol/L (3-11); BUN 8 mg/dL (7-18); Bilirubin, Total 0.3 mg/dL (0.2-1.0); CO2 26.7 mmol/L (21.0-32.0); CREATININE 0.75 mg/dL (0.55-1.02); Calcium 8.6 mg/dL (8.5-10.1); Chloride 96 mmol/L (98-107); Glucose 285 mg/dL (74-106); Potassium 4.2 mmol/L (3.5-5.1); Sodium 134 mmol/L (136-145); Total Protein 7.8 g/dL (6.4-8.2)
[2020-05-09 14:05] LABS: CA 125 1229 U/mL (<30)
[2020-05-11] MEDS: Normal Saline Flush 10 ML SYR IVP (11:14)
[2020-05-11] MEDS: Heparin 500 UNITS/5 ML SYRINGE IV (11:14)
[2020-05-11 11:18] LABS: Abs Immature Grans 0.17 10^3/uL (0.0-0.06); Absolute Basophil Count 0.05 10^3/uL (0.0-0.2); Absolute Eosinophil Count 0.07 10^3/uL (0.0-0.7); Absolute Lymphocyte Count 1.12 10^3/uL (1.2-3.4); Absolute Monocyte Count 1.06 10^3/uL (0.1-0.8); Basophils % 0.6; Eosinophils % 0.8; HCT 34.5 % (36.0-46.0); HGB 10.7 g/dL (11.2-15.7); Immature Grans % 2.1; Lymphocytes % 13.5; MCH 27.3 pg (27.0-33.0); MPV 9.9 fL (8.0-11.0); Monocytes % 12.8; Neutrophils % 70.2; Nucleated RBC 0 %; Platelet Count 209 10^3/uL (130-400); RBC 3.92 10^6/uL (3.93-5.22); RDW 16.9 % (11.7-14.6); RDW-SD 51.7 fL; WBC 8.27 10^3/uL (4.4-10.8)
[2020-05-11 11:33] LABS: ALT 13 U/L (14-59); AST 11 U/L (15-37); Albumin 3.2 g/dL (3.4-5.0); Alkaline Phosphatase 99 U/L (46-116); Anion Gap 7.3 mmol/L (3-11); BUN 7 mg/dL (7-18); Bilirubin, Total 0.3 mg/dL (0.2-1.0); CO2 28.7 mmol/L (21.0-32.0); CREATININE 0.71 mg/dL (0.55-1.02); Chloride 100 mmol/L (98-107); Glucose 232 mg/dL (74-106); Potassium 4.3 mmol/L (3.5-5.1); Sodium 136 mmol/L (136-145); Total Protein 7.6 g/dL (6.4-8.2)
[2020-05-14 14:03] LABS: CA 125 1056 U/mL (<30)
== END 2020-05-19 23:59 | disposition home or self-care (01) ==
LOC: INF 01:10
PROVIDERS: PCP Family Medicine; Visit Provider Obstetrics & Gynecology Gynecologic Oncology
DX: C56.9 Malignant neoplasm of unspecified ovary (principal); C48.2 Malignant neoplasm of peritoneum, unspecified
CPT/HCPCS: 36591; 80053; 86304; 85025

== ENCOUNTER 2020-06-12 01:59 | Outpatient (RCR) | payer MEDICARE, MEDICAID, SELFPAY ==
[2020-05-22] MEDS: Normal Saline Flush 10 ML SYR IVP (11:07)
[2020-05-22] MEDS: Heparin 500 UNITS/5 ML SYRINGE IV (11:07)
[2020-05-22 11:14] LABS: Abs Immature Grans 1.59 10^3/uL (0.0-0.06); HCT 31.9 % (36.0-46.0); HGB 10.1 g/dL (11.2-15.7); MCH 27.5 pg (27.0-33.0); MCHC 31.7 % (32.0-36.0); MCV 86.9 fL (80-95); MPV 10.2 fL (8.0-11.0); Nucleated RBC 0 %; RBC 3.67 10^6/uL (3.93-5.22); RDW 17.1 % (11.7-14.6); RDW-SD 53.7 fL; WBC 12.86 10^3/uL (4.4-10.8)
[2020-05-22 11:32] LABS: Absolute Lymphocyte Count 1.29 10^3/uL (1.2-3.4); Platelet Count 152 10^3/uL (130-400)
[2020-05-22 11:33] LABS: Absolute Basophil Count 0.13 10^3/uL (0.0-0.2); Absolute Eosinophil Count 0.13 10^3/uL (0.0-0.7); Absolute Monocyte Count 1.29 10^3/uL (0.1-0.8); Absolute Neutrophil Count 9.13 10^3/uL (1.2-6.7); Bands % 13; Diff Comment Manual Differential; Metamyelocytes % 4; Myelocytes % 2; RBC Morphology Normal
[2020-05-29] MEDS: Normal Saline Flush 10 ML SYR IVP (11:55)
[2020-05-29] MEDS: Heparin 500 UNITS/5 ML SYRINGE IV (11:55)
[2020-05-29 12:14] LABS: Abs Immature Grans 0.16 10^3/uL (0.0-0.06); Absolute Basophil Count 0.07 10^3/uL (0.0-0.2); Absolute Eosinophil Count 0.05 10^3/uL (0.0-0.7); Absolute Lymphocyte Count 0.82 10^3/uL (1.2-3.4); Absolute Monocyte Count 0.98 10^3/uL (0.1-0.8); Basophils % 0.8; Eosinophils % 0.6; HCT 32.2 % (36.0-46.0); HGB 10.1 g/dL (11.2-15.7); Immature Grans % 1.9; Lymphocytes % 9.9; MCH 27.1 pg (27.0-33.0); MCHC 31.4 % (32.0-36.0); MCV 86.3 fL (80-95); MPV 10.2 fL (8.0-11.0); Monocytes % 11.8; Nucleated RBC 0 %; Platelet Count 167 10^3/uL (130-400); RBC 3.73 10^6/uL (3.93-5.22); RDW 18.8 % (11.7-14.6); RDW-SD 57.6 fL; WBC 8.28 10^3/uL (4.4-10.8)
[2020-06-04] MEDS: Heparin 500 UNITS/5 ML SYRINGE IV (11:34)
[2020-06-04] MEDS: Normal Saline Flush 10 ML SYR IVP (11:34)
[2020-06-04 11:46] LABS: Abs Immature Grans 0.11 10^3/uL (0.0-0.06); Absolute Basophil Count 0.04 10^3/uL (0.0-0.2); Absolute Eosinophil Count 0.04 10^3/uL (0.0-0.7); Absolute Lymphocyte Count 1.26 10^3/uL (1.2-3.4); Absolute Neutrophil Count 3.59 10^3/uL (1.2-6.7); Basophils % 0.7; Eosinophils % 0.7; HCT 32.4 % (36.0-46.0); HGB 10.2 g/dL (11.2-15.7); Immature Grans % 1.9; Lymphocytes % 21.6; MCH 27.9 pg (27.0-33.0); MCHC 31.5 % (32.0-36.0); MCV 88.5 fL (80-95); MPV 10.1 fL (8.0-11.0); Monocytes % 13.7; Neutrophils % 61.4; Nucleated RBC 0 %; Platelet Count 180 10^3/uL (130-400); RBC 3.66 10^6/uL (3.93-5.22); RDW 18.9 % (11.7-14.6); RDW-SD 60.6 fL; WBC 5.84 10^3/uL (4.4-10.8)
[2020-06-04 12:01] LABS: ALT 14 U/L (14-59); AST 12 U/L (15-37); Albumin 3.5 g/dL (3.4-5.0); Alkaline Phosphatase 104 U/L (46-116); BUN 13 mg/dL (7-18); Bilirubin, Total 0.2 mg/dL (0.2-1.0); CREATININE 0.84 mg/dL (0.55-1.02); Calcium 8.6 mg/dL (8.5-10.1); Chloride 101 mmol/L (98-107); Glucose 271 mg/dL (74-106); Potassium 5.1 mmol/L (3.5-5.1); Sodium 137 mmol/L (136-145); Total Protein 7.7 g/dL (6.4-8.2)
[2020-06-07 11:00] LABS: CA 125 206 U/mL (<30)
[2020-06-12] MEDS: Normal Saline Flush 10 ML SYR IVP (11:46)
[2020-06-12] MEDS: Heparin 500 UNITS/5 ML SYRINGE IV (11:46)
[2020-06-12 11:50] LABS: Abs Immature Grans 0.82 10^3/uL (0.0-0.06); HCT 30.4 % (36.0-46.0); HGB 9.7 g/dL (11.2-15.7); MCH 28.3 pg (27.0-33.0); MCHC 31.9 % (32.0-36.0); MCV 88.6 fL (80-95); MPV 10.6 fL (8.0-11.0); Nucleated RBC 0 %; Platelet Count 154 10^3/uL (130-400); RBC 3.43 10^6/uL (3.93-5.22); RDW 18.6 % (11.7-14.6); RDW-SD 60.4 fL
[2020-06-12 12:05] LABS: Absolute Lymphocyte Count 1.54 10^3/uL (1.2-3.4); Absolute Monocyte Count 1.44 10^3/uL (0.1-0.8); Absolute Neutrophil Count 6.14 10^3/uL (1.2-6.7); Bands % 17; Metamyelocytes % 2; Myelocytes % 3
[2020-06-12 12:06] LABS: Anisocytosis 1+; Diff Comment Manual Differential; Poikilocytes 1+; Polychromasia Present
== END 2020-06-18 23:59 | disposition home or self-care (01) ==
LOC: INF 01:59
PROVIDERS: PCP Family Medicine; Visit Provider Obstetrics & Gynecology Gynecologic Oncology
DX: C48.2 Malignant neoplasm of peritoneum, unspecified (principal); Z45.2 Encounter for adjustment and management of vascular access device
CPT/HCPCS: 36591; 80053; 86304; 85025

== ENCOUNTER 2020-07-16 02:13 | Outpatient (RCR) | payer MEDICARE, MEDICAID, SELFPAY ==
[2020-06-19] MEDS: Heparin 500 UNITS/5 ML SYRINGE IV (11:30)
[2020-06-19] MEDS: Normal Saline Flush 10 ML SYR IVP (11:30)
[2020-06-19 11:57] LABS: Abs Immature Grans 0.18 10^3/uL (0.0-0.06); Absolute Basophil Count 0.06 10^3/uL (0.0-0.2); Absolute Eosinophil Count 0.02 10^3/uL (0.0-0.7); Absolute Lymphocyte Count 1.19 10^3/uL (1.2-3.4); Absolute Monocyte Count 1.13 10^3/uL (0.1-0.8); Absolute Neutrophil Count 9.09 10^3/uL (1.2-6.7); Basophils % 0.5; Eosinophils % 0.2; HCT 32.4 % (36.0-46.0); HGB 10.3 g/dL (11.2-15.7); Immature Grans % 1.5; Lymphocytes % 10.2; MCH 28.4 pg (27.0-33.0); MCHC 31.8 % (32.0-36.0); MCV 89.3 fL (80-95); MPV 10.6 fL (8.0-11.0); Monocytes % 9.7; Neutrophils % 77.9; Nucleated RBC 0 %; Platelet Count 170 10^3/uL (130-400); RBC 3.63 10^6/uL (3.93-5.22); RDW 19.9 % (11.7-14.6); WBC 11.67 10^3/uL (4.4-10.8)
[2020-06-25] MEDS: Normal Saline Flush 10 ML SYR IVP (12:27)
[2020-06-25] MEDS: Heparin 500 UNITS/5 ML SYRINGE IV (12:28)
[2020-06-25 12:52] LABS: Abs Immature Grans 0.08 10^3/uL (0.0-0.06); Absolute Basophil Count 0.03 10^3/uL (0.0-0.2); Absolute Eosinophil Count 0.04 10^3/uL (0.0-0.7); Absolute Lymphocyte Count 1.41 10^3/uL (1.2-3.4); Absolute Monocyte Count 0.91 10^3/uL (0.1-0.8); Basophils % 0.4; Eosinophils % 0.5; HCT 33.1 % (36.0-46.0); HGB 10.2 g/dL (11.2-15.7); Immature Grans % 1.1; Lymphocytes % 19.1; MCH 28.4 pg (27.0-33.0); MCHC 30.8 % (32.0-36.0); MCV 92.2 fL (80-95); MPV 9.8 fL (8.0-11.0); Monocytes % 12.3; Neutrophils % 66.6; Nucleated RBC 0 %; Platelet Count 258 10^3/uL (130-400); RBC 3.59 10^6/uL (3.93-5.22); RDW 19.1 % (11.7-14.6); RDW-SD 64.3 fL; WBC 7.37 10^3/uL (4.4-10.8)
[2020-06-25 13:01] LABS: ALT 13 U/L (14-59); AST 11 U/L (15-37); Albumin 3.5 g/dL (3.4-5.0); Alkaline Phosphatase 92 U/L (46-116); Anion Gap 12.8 mmol/L (3-11); BUN 10 mg/dL (7-18); Bilirubin, Total 0.3 mg/dL (0.2-1.0); CO2 24.2 mmol/L (21.0-32.0); CREATININE 0.83 mg/dL (0.55-1.02); Calcium 8.5 mg/dL (8.5-10.1); Chloride 99 mmol/L (98-107); Glucose 190 mg/dL (74-106); Potassium 4.4 mmol/L (3.5-5.1); Sodium 136 mmol/L (136-145); Total Protein 7.7 g/dL (6.4-8.2)
[2020-06-26 10:56] LABS: CA 125 111 U/mL (<30)
[2020-07-03] MEDS: Normal Saline Flush 10 ML SYR IVP (11:35)
[2020-07-03] MEDS: Heparin 500 UNITS/5 ML SYRINGE IV (11:35)
[2020-07-03 11:45] LABS: Abs Immature Grans 0.27 10^3/uL (0.0-0.06); HCT 30.8 % (36.0-46.0); HGB 9.6 g/dL (11.2-15.7); MCHC 31.2 % (32.0-36.0); MCV 93.1 fL (80-95); MPV 10.6 fL (8.0-11.0); Nucleated RBC 0 %; Platelet Count 124 10^3/uL (130-400); RBC 3.31 10^6/uL (3.93-5.22); RDW 17.9 % (11.7-14.6); RDW-SD 61.7 fL; WBC 9.13 10^3/uL (4.4-10.8)
[2020-07-03 12:01] LABS: Absolute Lymphocyte Count 1.37 10^3/uL (1.2-3.4); Absolute Neutrophil Count 6.48 10^3/uL (1.2-6.7); Bands % 16
[2020-07-03 12:02] LABS: Anisocytosis 1+; Diff Comment Manual Differential; Metamyelocytes % 2; Poikilocytes 1+
[2020-07-10] MEDS: Heparin 500 UNITS/5 ML SYRINGE IV (11:15)
[2020-07-10] MEDS: Normal Saline Flush 10 ML SYR IVP (11:15)
[2020-07-10 11:30] LABS: Abs Immature Grans 0.12 10^3/uL (0.0-0.06); Absolute Basophil Count 0.04 10^3/uL (0.0-0.2); Absolute Eosinophil Count 0.03 10^3/uL (0.0-0.7); Absolute Lymphocyte Count 1.05 10^3/uL (1.2-3.4); Absolute Neutrophil Count 5.38 10^3/uL (1.2-6.7); Basophils % 0.5; Eosinophils % 0.4; HCT 30.2 % (36.0-46.0); HGB 9.4 g/dL (11.2-15.7); Immature Grans % 1.6; Lymphocytes % 14.2; MCH 28.5 pg (27.0-33.0); MCHC 31.1 % (32.0-36.0); MCV 91.5 fL (80-95); MPV 10.3 fL (8.0-11.0); Monocytes % 10.8; Neutrophils % 72.5; Nucleated RBC 0 %; Platelet Count 147 10^3/uL (130-400); RDW 18.8 % (11.7-14.6); RDW-SD 62.7 fL; WBC 7.42 10^3/uL (4.4-10.8)
[2020-07-16] MEDS: Normal Saline Flush 10 ML SYR IVP (10:40)
[2020-07-16] MEDS: Heparin 500 UNITS/5 ML SYRINGE IV (10:40)
[2020-07-16 10:55] LABS: Absolute Basophil Count 0.03 10^3/uL (0.0-0.2); Absolute Eosinophil Count 0.05 10^3/uL (0.0-0.7); Absolute Lymphocyte Count 1.06 10^3/uL (1.2-3.4); Absolute Monocyte Count 0.78 10^3/uL (0.1-0.8); Absolute Neutrophil Count 4.59 10^3/uL (1.2-6.7); Basophils % 0.5; Eosinophils % 0.8; HCT 32.3 % (36.0-46.0); Immature Grans % 1.5; MCH 29.2 pg (27.0-33.0); MCV 94.2 fL (80-95); MPV 9.4 fL (8.0-11.0); Monocytes % 11.8; Neutrophils % 69.4; Nucleated RBC 0 %; Platelet Count 214 10^3/uL (130-400); RBC 3.43 10^6/uL (3.93-5.22); RDW 18.1 % (11.7-14.6); RDW-SD 62.5 fL; WBC 6.61 10^3/uL (4.4-10.8)
[2020-07-16 11:15] LABS: ALT 18 U/L (14-59); AST 9 U/L (15-37); Albumin 3.5 g/dL (3.4-5.0); Alkaline Phosphatase 94 U/L (46-116); BUN 9 mg/dL (7-18); Bilirubin, Total 0.2 mg/dL (0.2-1.0); CREATININE 0.94 mg/dL (0.55-1.02); Calcium 8.1 mg/dL (8.5-10.1); Chloride 99 mmol/L (98-107); Estimated GFR 58.53 (mL/min/1.73m2); Glucose 327 mg/dL (74-106); Potassium 4.7 mmol/L (3.5-5.1); Sodium 134 mmol/L (136-145); Total Protein 7.5 g/dL (6.4-8.2)
[2020-07-17 09:59] LABS: CA 125 96 U/mL (<30)
== END 2020-07-19 23:59 | disposition home or self-care (01) ==
LOC: INF 02:13
PROVIDERS: PCP Family Medicine; Visit Provider Obstetrics & Gynecology Gynecologic Oncology
DX: C48.2 Malignant neoplasm of peritoneum, unspecified (principal); Z45.2 Encounter for adjustment and management of vascular access device
CPT/HCPCS: 36591; 80053; 86304; 85025

== ENCOUNTER 2020-08-14 02:56 | Outpatient (RCR) | payer MEDICARE, MEDICAID, SELFPAY ==
[2020-07-24] MEDS: Heparin 500 UNITS/5 ML SYRINGE (11:48)
[2020-07-24] MEDS: Normal Saline Flush 10 ML SYR IVP (11:49)
[2020-07-24 11:51] LABS: Abs Immature Grans 0.69 10^3/uL (0.0-0.06); HCT 30.4 % (36.0-46.0); HGB 9.4 g/dL (11.2-15.7); MCH 29.4 pg (27.0-33.0); MCHC 30.9 % (32.0-36.0); MPV 11.1 fL (8.0-11.0); Nucleated RBC 0 %; RDW 16.2 % (11.7-14.6); RDW-SD 56.4 fL; WBC 9.14 10^3/uL (4.4-10.8)
[2020-07-24 12:10] LABS: Absolute Lymphocyte Count 1.65 10^3/uL (1.2-3.4); Absolute Neutrophil Count 5.21 10^3/uL (1.2-6.7); Bands % 10; Platelet Count 112 10^3/uL (130-400)
[2020-07-24 12:11] LABS: Absolute Monocyte Count 1.65 10^3/uL (0.1-0.8)
[2020-07-24 12:12] LABS: Diff Comment Manual Differential; Metamyelocytes % 5
[2020-07-24 12:13] LABS: Anisocytosis 1+; Hypochromasia 1+; Myelocytes % 2
[2020-07-24 12:14] LABS: Poikilocytes 2+
[2020-07-31] MEDS: Normal Saline Flush 10 ML SYR IVP (11:36)
[2020-07-31] MEDS: Heparin 500 UNITS/5 ML SYRINGE IV (11:37)
[2020-07-31 11:43] LABS: Abs Immature Grans 0.08 10^3/uL (0.0-0.06); Absolute Basophil Count 0.07 10^3/uL (0.0-0.2); Absolute Eosinophil Count 0.02 10^3/uL (0.0-0.7); Absolute Lymphocyte Count 1.05 10^3/uL (1.2-3.4); Absolute Monocyte Count 0.69 10^3/uL (0.1-0.8); Absolute Neutrophil Count 3.68 10^3/uL (1.2-6.7); Basophils % 1.3; Eosinophils % 0.4; HGB 10.4 g/dL (11.2-15.7); Immature Grans % 1.4; Lymphocytes % 18.8; MCH 29.7 pg (27.0-33.0); MCHC 31.5 % (32.0-36.0); MCV 94.3 fL (80-95); MPV 10.6 fL (8.0-11.0); Monocytes % 12.3; Neutrophils % 65.8; Nucleated RBC 0 %; Platelet Count 175 10^3/uL (130-400); RDW 17.2 % (11.7-14.6); RDW-SD 58.2 fL; WBC 5.59 10^3/uL (4.4-10.8)
[2020-08-06] MEDS: Normal Saline Flush 10 ML SYR IVP (11:52)
[2020-08-06 11:53] LABS: Abs Immature Grans 0.05 10^3/uL (0.0-0.06); Absolute Basophil Count 0.03 10^3/uL (0.0-0.2); Absolute Eosinophil Count 0.04 10^3/uL (0.0-0.7); Absolute Lymphocyte Count 1.28 10^3/uL (1.2-3.4); Absolute Monocyte Count 0.99 10^3/uL (0.1-0.8); Absolute Neutrophil Count 5.36 10^3/uL (1.2-6.7); Basophils % 0.4; Eosinophils % 0.5; HCT 34.5 % (36.0-46.0); HGB 10.6 g/dL (11.2-15.7); Immature Grans % 0.6; Lymphocytes % 16.5; MCH 29.2 pg (27.0-33.0); MCHC 30.7 % (32.0-36.0); MPV 9.5 fL (8.0-11.0); Monocytes % 12.8; Neutrophils % 69.2; Nucleated RBC 0 %; Platelet Count 258 10^3/uL (130-400); RBC 3.63 10^6/uL (3.93-5.22); RDW 15.9 % (11.7-14.6); RDW-SD 55.8 fL; WBC 7.75 10^3/uL (4.4-10.8)
[2020-08-06] MEDS: Heparin 500 UNITS/5 ML SYRINGE IV (11:53)
[2020-08-06 12:10] LABS: ALT 19 U/L (14-59); AST 11 U/L (15-37); Albumin 3.6 g/dL (3.4-5.0); Alkaline Phosphatase 70 U/L (46-116); BUN 9 mg/dL (7-18); Bilirubin, Total 0.3 mg/dL (0.2-1.0); Calcium 8.7 mg/dL (8.5-10.1); Chloride 101 mmol/L (98-107); Glucose 168 mg/dL (74-106); Potassium 4.6 mmol/L (3.5-5.1); Sodium 137 mmol/L (136-145); Total Protein 7.5 g/dL (6.4-8.2)
[2020-08-07 10:11] LABS: CA 125 61 U/mL (<30)
[2020-08-14] MEDS: Normal Saline Flush 10 ML SYR IVP (12:09)
[2020-08-14] MEDS: Heparin 500 UNITS/5 ML SYRINGE IV (12:09)
[2020-08-14 12:29] LABS: Abs Immature Grans 0.36 10^3/uL (0.0-0.06); HCT 30.8 % (36.0-46.0); HGB 9.7 g/dL (11.2-15.7); MCH 29.1 pg (27.0-33.0); MCHC 31.5 % (32.0-36.0); MCV 92.5 fL (80-95); MPV 11.6 fL (8.0-11.0); Nucleated RBC 0 %; RBC 3.33 10^6/uL (3.93-5.22); RDW 15.3 % (11.7-14.6); RDW-SD 51.8 fL; WBC 8.36 10^3/uL (4.4-10.8)
[2020-08-14 12:46] LABS: Absolute Monocyte Count 1.34 10^3/uL (0.1-0.8); Bands % 14; Platelet Count 120 10^3/uL (130-400)
[2020-08-14 12:47] LABS: Diff Comment Manual Differential; Metamyelocytes % 3; Myelocytes % 2
[2020-08-14 12:48] LABS: Poikilocytes 1+
== END 2020-08-19 23:59 | disposition home or self-care (01) ==
LOC: INF 02:56
PROVIDERS: PCP Family Medicine; Visit Provider Obstetrics & Gynecology Gynecologic Oncology
DX: C48.2 Malignant neoplasm of peritoneum, unspecified (principal); Z45.2 Encounter for adjustment and management of vascular access device
CPT/HCPCS: 36591; 80053; 86304; 85025

== ENCOUNTER 2020-09-11 01:53 | Outpatient (RCR) | payer MEDICARE, MEDICAID, SELFPAY ==
[2020-08-21] MEDS: Heparin 500 UNITS/5 ML SYRINGE IV (11:45)
[2020-08-21] MEDS: Normal Saline Flush 10 ML SYR IVP (11:45)
[2020-08-21 11:50] LABS: Abs Immature Grans 0.09 10^3/uL (0.0-0.06); Absolute Basophil Count 0.05 10^3/uL (0.0-0.2); Absolute Eosinophil Count 0.04 10^3/uL (0.0-0.7); Absolute Monocyte Count 0.88 10^3/uL (0.1-0.8); Basophils % 0.7; Eosinophils % 0.6; HCT 32.1 % (36.0-46.0); HGB 10.1 g/dL (11.2-15.7); Immature Grans % 1.3; Lymphocytes % 18.2; MCH 29.4 pg (27.0-33.0); MCHC 31.5 % (32.0-36.0); MCV 93.6 fL (80-95); MPV 10.4 fL (8.0-11.0); Monocytes % 12.3; Neutrophils % 66.9; Nucleated RBC 0 %; Platelet Count 155 10^3/uL (130-400); RBC 3.43 10^6/uL (3.93-5.22); RDW 15.7 % (11.7-14.6); WBC 7.16 10^3/uL (4.4-10.8)
[2020-08-22 09:53] LABS: CA 125 51 U/mL (<30)
[2020-08-27] MEDS: Heparin 500 UNITS/5 ML SYRINGE IV (11:07)
[2020-08-27] MEDS: Normal Saline Flush 10 ML SYR IVP (11:07)
[2020-08-27 11:13] LABS: Abs Immature Grans 0.04 10^3/uL (0.0-0.06); Absolute Basophil Count 0.04 10^3/uL (0.0-0.2); Absolute Eosinophil Count 0.06 10^3/uL (0.0-0.7); Absolute Lymphocyte Count 1.18 10^3/uL (1.2-3.4); Absolute Monocyte Count 0.95 10^3/uL (0.1-0.8); Absolute Neutrophil Count 4.54 10^3/uL (1.2-6.7); Basophils % 0.6; Eosinophils % 0.9; HCT 33.9 % (36.0-46.0); HGB 10.5 g/dL (11.2-15.7); Immature Grans % 0.6; Lymphocytes % 17.3; MCH 28.8 pg (27.0-33.0); MCV 92.9 fL (80-95); MPV 9.2 fL (8.0-11.0); Neutrophils % 66.6; Nucleated RBC 0 %; Platelet Count 231 10^3/uL (130-400); RBC 3.65 10^6/uL (3.93-5.22); RDW 15.3 % (11.7-14.6); RDW-SD 51.9 fL; WBC 6.81 10^3/uL (4.4-10.8)
[2020-08-27 11:31] LABS: ALT 17 U/L (14-59); AST 9 U/L (15-37); Albumin 3.6 g/dL (3.4-5.0); Alkaline Phosphatase 73 U/L (46-116); Anion Gap 10.2 mmol/L (3-11); BUN 8 mg/dL (7-18); Bilirubin, Total 0.3 mg/dL (0.2-1.0); CO2 25.8 mmol/L (21.0-32.0); CREATININE 0.8 mg/dL (0.55-1.02); Calcium 8.7 mg/dL (8.5-10.1); Chloride 99 mmol/L (98-107); Glucose 226 mg/dL (74-106); Sodium 135 mmol/L (136-145); Total Protein 7.5 g/dL (6.4-8.2)
[2020-09-04] MEDS: Normal Saline Flush 10 ML SYR IVP (11:19)
[2020-09-04] MEDS: Heparin 500 UNITS/5 ML SYRINGE IV (11:19)
[2020-09-04 11:36] LABS: Abs Immature Grans 0.54 10^3/uL (0.0-0.06); HCT 30.1 % (36.0-46.0); HGB 9.3 g/dL (11.2-15.7); MCH 28.5 pg (27.0-33.0); MCHC 30.9 % (32.0-36.0); MCV 92.3 fL (80-95); MPV 10.7 fL (8.0-11.0); Nucleated RBC 0 %; RBC 3.26 10^6/uL (3.93-5.22); RDW 15.1 % (11.7-14.6); RDW-SD 51.5 fL; WBC 9.89 10^3/uL (4.4-10.8)
[2020-09-04 11:59] LABS: Absolute Lymphocyte Count 2.27 10^3/uL (1.2-3.4); Absolute Monocyte Count 0.99 10^3/uL (0.1-0.8); Absolute Neutrophil Count 6.63 10^3/uL (1.2-6.7); Bands % 12; Diff Comment Manual Differential; RBC Morphology Normal
[2020-09-04 12:00] LABS: Platelet Count 104 10^3/uL (130-400)
[2020-09-11 11:43] LABS: Abs Immature Grans 0.07 10^3/uL (0.0-0.06); Absolute Basophil Count 0.05 10^3/uL (0.0-0.2); Absolute Eosinophil Count 0.03 10^3/uL (0.0-0.7); Absolute Lymphocyte Count 1.04 10^3/uL (1.2-3.4); Absolute Monocyte Count 0.66 10^3/uL (0.1-0.8); Absolute Neutrophil Count 3.97 10^3/uL (1.2-6.7); Basophils % 0.9; Eosinophils % 0.5; HCT 31.5 % (36.0-46.0); Immature Grans % 1.2; Lymphocytes % 17.9; MCHC 31.7 % (32.0-36.0); MCV 91.3 fL (80-95); MPV 10.2 fL (8.0-11.0); Monocytes % 11.3; Neutrophils % 68.2; Nucleated RBC 0 %; Platelet Count 143 10^3/uL (130-400); RBC 3.45 10^6/uL (3.93-5.22); WBC 5.82 10^3/uL (4.4-10.8)
[2020-09-11] MEDS: Heparin 500 UNITS/5 ML SYRINGE IV (11:46)
[2020-09-11] MEDS: Normal Saline Flush 10 ML SYR IVP (11:46)
== END 2020-09-16 23:59 | disposition home or self-care (01) ==
LOC: INF 01:53
PROVIDERS: PCP Family Medicine; Visit Provider Obstetrics & Gynecology Gynecologic Oncology
DX: C56.9 Malignant neoplasm of unspecified ovary (principal); C48.2 Malignant neoplasm of peritoneum, unspecified; Z45.2 Encounter for adjustment and management of vascular access device
CPT/HCPCS: 36591; 80053; 86304; 85025

== ENCOUNTER 2020-09-25 01:38 | Outpatient (CLI) | payer MEDICARE, MEDICAID, SELFPAY ==
--- NOTE | 2020-09-25 10:20 | DI.CT_ITS ---
EXAM: CT CHEST/ABD/PEL W CLINICAL HISTORY: H/O OVARIAN CA,ASSESS RESPONSE TO TREATMENT,C48.1 TECHNIQUE: Imaging Protocol: Axial computed tomography images with coronal and sagittal reformatted images were created and reviewed CONTRAST MATERIAL: Intravenous: Omnipaque 350 Contrast volume:100 mL Oral: Yes COMPARISON: CT CT CHEST/ABD/PEL W from 08/12/[address] CHEST/ABD/PEL W from 08/12/2019 FINDINGS: The examination is limited due to patient motion artifact. CHEST: Tracheobronchial tree: Patent where visualized. Pulmonary parenchyma: No consolidation or dominant measurable mass. Dependent atelectasis. No archi tectural distortion. No suspicious pulmonary nodules. Visualized thyroid gland: Unremarkable. Mediastinum and Mariza: No dominant adenopathy or fluid collection. Small hiatal hernia. Pleura: No effusion or pneumothorax. Heart: The heart is not dilated. No coronary artery calcifications are seen. No pericardial effusion. Aorta: Thoracic aorta non-dilated. Atherosclerosis. Visualized central pulmonary arteries show no pu lmonary emboli. Lymph nodes: Within normal limits. Tubes, Catheters, and Lines: Tip of the [id number] catheter is in good position at the junction of the superior vena cava and right atrium. Soft tissues: Unremarkable. Bones:No suspicious lytic or sclerotic lesions are identified. ABDOMEN: Liver: Normal density. No measurable mass. Portal, Superior Mesenteric, and Splenic Veins: Unremarkable. Gallbladder and Biliary Tract: Cholelithiasis. No biliary ductal dilatation. Pancreas: Normal density, no abnormal calcifications or inflammatory process. Spleen: Normal. Adrenals: No masses seen. Kidneys: Normal size, contour and axis. No radiodense stones or obstructive uropathy. No masses seen. Abdominal Aorta: Abdominal portion non-dilated. Moderate atherosclerosis. Bowel: No obstruction or bowel wall thickening. No evidence of appendicitis. And mass Modic sutures are again seen in the sigmoid colon. There has been no change in appearance of the left paraumbilica l anterior abdominal wall hernia containing an unremarkable loops of transverse colon and small bowel . No evidence of obstruction. Peritoneal Cavity: No ascites, collection or mesenteric inflammatory response. No free air. Lymph Nodes: Within normal limits. Bones: No suspicious lytic or sclerotic lesions. Soft Tissues: There are findings of a prior left inguinal hernia repair. PELVIS: Bladder: Incompletely distended. No gross abnormality. Reproductive Organs: Status post hysterectomy. Lymph Nodes: Within normal limits. Bones: No suspicious lytic or sclerotic lesions. IMPRESSION: 1. No evidence of abdominal or pelvic metastatic disease. 2. Stable findings in the abdomen and pelvis. 3. Examination is limited due to patient motion artifact. 4. No evidence of thoracic metastatic disease. RADIATION DOSE DELIVERED: 1,588.93mGy.cm Total DLP DATA REPOSITORY: All CT scans at this facility are submitted to the National Radiology Data Registry (NRDR) Dose Index Registry (DIR) with the [employer] (A[employer]). RADIATION OPTIMIZATION: All CT scans at this facility use at least one of these dose optimization te chniques: automated exposure control; mA and/or kV adjustment per patient size (includes targeted exa ms where dose is matched to clinical indication); or iterative reconstruction.
[2020-09-25] MEDS: Omnipaque 350 MG/ML 100 ML BTL IJ (14:20)
[2020-09-25] MEDS: Breeza Beverage 473 ML BTL PO (14:21)
[2020-09-25] MEDS: Normal Saline - Diluent 50 ML VIAL IV (14:21)
== END 2020-09-25 01:58 ==
PROVIDERS: PCP Family Medicine; Visit Provider Obstetrics & Gynecology Gynecologic Oncology
DX: C48.1 Malignant neoplasm of specified parts of peritoneum (principal)
CPT/HCPCS: 74177; 96523; 71260; J3490

== ENCOUNTER 2020-09-25 08:00 | Outpatient (RCR) | payer MEDICARE, MEDICAID, SELFPAY ==
[2020-09-17] MEDS: Normal Saline Flush 10 ML SYR IVP (11:43)
[2020-09-17] MEDS: Heparin 500 UNITS/5 ML SYRINGE IV (11:43)
[2020-09-17 11:49] LABS: Abs Immature Grans 0.02 10^3/uL (0.0-0.06); Absolute Basophil Count 0.04 10^3/uL (0.0-0.2); Absolute Eosinophil Count 0.03 10^3/uL (0.0-0.7); Absolute Lymphocyte Count 0.93 10^3/uL (1.2-3.4); Absolute Monocyte Count 0.78 10^3/uL (0.1-0.8); Absolute Neutrophil Count 3.43 10^3/uL (1.2-6.7); Basophils % 0.8; Eosinophils % 0.6; HGB 10.2 g/dL (11.2-15.7); Immature Grans % 0.4; Lymphocytes % 17.8; MCH 29.3 pg (27.0-33.0); MCHC 31.9 % (32.0-36.0); MPV 9.3 fL (8.0-11.0); Monocytes % 14.9; Neutrophils % 65.5; Nucleated RBC 0 %; Platelet Count 202 10^3/uL (130-400); RBC 3.48 10^6/uL (3.93-5.22); RDW 16.1 % (11.7-14.6); RDW-SD 54.8 fL; WBC 5.23 10^3/uL (4.4-10.8)
[2020-09-17 12:10] LABS: ALT 21 U/L (14-59); AST 10 U/L (15-37); Albumin 3.4 g/dL (3.4-5.0); Alkaline Phosphatase 88 U/L (46-116); Anion Gap 5.6 mmol/L (3-11); BUN 8 mg/dL (7-18); Bilirubin, Total 0.3 mg/dL (0.2-1.0); CO2 25.4 mmol/L (21.0-32.0); CREATININE 0.7 mg/dL (0.55-1.02); Calcium 8.6 mg/dL (8.5-10.1); Chloride 102 mmol/L (98-107); Glucose 216 mg/dL (74-106); Potassium 4.7 mmol/L (3.5-5.1); Sodium 133 mmol/L (136-145); Total Protein 7.2 g/dL (6.4-8.2)
[2020-09-18 11:27] LABS: CA 125 48 U/mL (<30)
[2020-09-25] MEDS: Heparin 500 UNITS/5 ML SYRINGE IV (12:48)
[2020-09-25] MEDS: Normal Saline Flush 10 ML SYR IVP (12:48)
== END 2020-10-17 23:59 | disposition home or self-care (01) ==
LOC: INF 08:00
PROVIDERS: PCP Family Medicine; Visit Provider Obstetrics & Gynecology Gynecologic Oncology
DX: C48.2 Malignant neoplasm of peritoneum, unspecified (principal); Z45.2 Encounter for adjustment and management of vascular access device
CPT/HCPCS: 36591; 80053; 86304; 96523; 85025

== ENCOUNTER 2020-10-26 05:44 | Outpatient (RCR) | payer MEDICARE, MEDICAID, SELFPAY ==
[2020-10-26] MEDS: Heparin 500 UNITS/5 ML SYRINGE IV (11:52)
[2020-10-26] MEDS: Normal Saline Flush 10 ML SYR IVP (11:52)
[2020-10-26 11:59] LABS: Abs Immature Grans 0.04 10^3/uL (0.0-0.06); Absolute Basophil Count 0.05 10^3/uL (0.0-0.2); Absolute Eosinophil Count 0.03 10^3/uL (0.0-0.7); Absolute Lymphocyte Count 0.95 10^3/uL (1.2-3.4); Absolute Monocyte Count 0.86 10^3/uL (0.1-0.8); Absolute Neutrophil Count 4.48 10^3/uL (1.2-6.7); Basophils % 0.8; Eosinophils % 0.5; HCT 35.9 % (36.0-46.0); HGB 11.6 g/dL (11.2-15.7); Immature Grans % 0.6; Lymphocytes % 14.8; MCH 29.1 pg (27.0-33.0); MCHC 32.3 % (32.0-36.0); MPV 9.3 fL (8.0-11.0); Monocytes % 13.4; Neutrophils % 69.9; Nucleated RBC 0 %; Platelet Count 214 10^3/uL (130-400); RBC 3.99 10^6/uL (3.93-5.22); RDW 16.6 % (11.7-14.6); WBC 6.41 10^3/uL (4.4-10.8)
[2020-10-26 12:59] LABS: ALT 22 U/L (14-59); AST 13 U/L (15-37); Albumin 3.7 g/dL (3.4-5.0); Alkaline Phosphatase 96 U/L (46-116); Anion Gap 9.3 mmol/L (3-11); BUN 11 mg/dL (7-18); Bilirubin, Total 0.4 mg/dL (0.2-1.0); CO2 27.7 mmol/L (21.0-32.0); Calcium 9.2 mg/dL (8.5-10.1); Chloride 92 mmol/L (98-107); Glucose 391 mg/dL (74-106); Potassium 4.1 mmol/L (3.5-5.1); Sodium 129 mmol/L (136-145); Total Protein 7.7 g/dL (6.4-8.2)
[2020-10-29 09:00] LABS: CA 125 41 U/mL (<30)
== END 2020-11-16 23:59 | disposition home or self-care (01) ==
LOC: INF 05:44
PROVIDERS: PCP Family Medicine; Visit Provider Obstetrics & Gynecology Gynecologic Oncology
DX: C48.2 Malignant neoplasm of peritoneum, unspecified (principal); Z45.2 Encounter for adjustment and management of vascular access device
CPT/HCPCS: 36591; 80053; 86304; 85025

== ENCOUNTER 2021-06-17 01:37 | Outpatient (RCR) | payer MEDICARE, MEDICAID, SELFPAY ==
[2021-06-07 10:27] LABS: Abs Immature Grans 0.03 10^3/uL (0.0-0.06); Absolute Basophil Count 0.03 10^3/uL (0.0-0.2); Absolute Eosinophil Count 0.07 10^3/uL (0.0-0.7); Absolute Lymphocyte Count 0.96 10^3/uL (1.2-3.4); Absolute Neutrophil Count 4.61 10^3/uL (1.2-6.7); Basophils % 0.5; Eosinophils % 1.1; HCT 37.4 % (36.0-46.0); HGB 11.9 g/dL (11.2-15.7); Immature Grans % 0.5; MCH 30.7 pg (27.0-33.0); MCHC 31.8 % (32.0-36.0); MCV 96.4 fL (80-95); Monocytes % 10.9; Nucleated RBC 0 %; Platelet Count 319 10^3/uL (130-400); RBC 3.88 10^6/uL (3.93-5.22); RDW 14.7 % (11.7-14.6); RDW-SD 52.4 fL
[2021-06-07] MEDS: Normal Saline Flush 10 ML SYR IVP (10:29)
[2021-06-07] MEDS: Heparin 500 UNITS/5 ML SYRINGE (10:30)
[2021-06-17 11:00] LABS: Abs Immature Grans 0.05 10^3/uL (0.0-0.06); Absolute Basophil Count 0.03 10^3/uL (0.0-0.2); Absolute Eosinophil Count 0.14 10^3/uL (0.0-0.7); Absolute Lymphocyte Count 0.83 10^3/uL (1.2-3.4); Absolute Monocyte Count 0.86 10^3/uL (0.1-0.8); Absolute Neutrophil Count 4.93 10^3/uL (1.2-6.7); Basophils % 0.4; HCT 36.2 % (36.0-46.0); HGB 11.7 g/dL (11.2-15.7); Immature Grans % 0.7; Lymphocytes % 12.1; MCH 30.6 pg (27.0-33.0); MCHC 32.3 % (32.0-36.0); MCV 94.8 fL (80-95); Monocytes % 12.6; Neutrophils % 72.2; Nucleated RBC 0 %; Platelet Count 280 10^3/uL (130-400); RBC 3.82 10^6/uL (3.93-5.22); RDW 13.8 % (11.7-14.6); RDW-SD 48.2 fL; WBC 6.84 10^3/uL (4.4-10.8)
[2021-06-17] MEDS: Heparin 500 UNITS/5 ML SYRINGE IV (11:07)
[2021-06-17] MEDS: Normal Saline Flush 10 ML SYR IVP (11:07)
[2021-06-17 11:16] LABS: ALT 17 U/L (14-59); AST 16 U/L (15-37); Albumin 3.7 g/dL (3.4-5.0); Alkaline Phosphatase 58 U/L (46-116); Anion Gap 8.7 mmol/L (3-11); BUN 23 mg/dL (7-18); Bilirubin, Total 0.4 mg/dL (0.2-1.0); CO2 29.3 mmol/L (21.0-32.0); CREATININE 0.9 mg/dL (0.55-1.02); Calcium 9.3 mg/dL (8.5-10.1); Chloride 99 mmol/L (98-107); Glucose 199 mg/dL (74-106); Potassium 4.5 mmol/L (3.5-5.1); Sodium 137 mmol/L (136-145); Total Protein 7.2 g/dL (6.4-8.2)
[2021-06-18 11:19] LABS: CA 125 129 U/mL (<30)
== END 2021-06-18 23:59 | disposition home or self-care (01) ==
LOC: INF 01:37
PROVIDERS: Nurse Practitioner Family; PCP Nurse Practitioner Family; Visit Provider Obstetrics & Gynecology Gynecologic Oncology
DX: C41.1 Malignant neoplasm of mandible (principal); C48.1 Malignant neoplasm of specified parts of peritoneum
CPT/HCPCS: 36591; 80053; 86304; 85025

== ENCOUNTER 2021-07-15 03:33 | Outpatient (RCR) | payer MEDICARE, MEDICAID, SELFPAY ==
[2021-07-02] MEDS: Heparin 500 UNITS/5 ML SYRINGE (12:17)
[2021-07-02] MEDS: Normal Saline Flush 10 ML SYR IVP (12:19)
[2021-07-02 12:27] LABS: Abs Immature Grans 0.02 10^3/uL (0.0-0.06); Absolute Basophil Count 0.03 10^3/uL (0.0-0.2); Absolute Eosinophil Count 0.14 10^3/uL (0.0-0.7); Absolute Lymphocyte Count 0.64 10^3/uL (1.2-3.4); Absolute Monocyte Count 0.69 10^3/uL (0.1-0.8); Absolute Neutrophil Count 3.61 10^3/uL (1.2-6.7); Basophils % 0.6; Eosinophils % 2.7; HCT 35.4 % (36.0-46.0); HGB 11.1 g/dL (11.2-15.7); Immature Grans % 0.4; Lymphocytes % 12.5; MCH 29.9 pg (27.0-33.0); MCHC 31.4 % (32.0-36.0); MCV 95.4 fL (80-95); MPV 9.5 fL (8.0-11.0); Monocytes % 13.5; Neutrophils % 70.3; Nucleated RBC 0 %; Platelet Count 300 10^3/uL (130-400); RBC 3.71 10^6/uL (3.93-5.22); RDW 14.2 % (11.7-14.6); RDW-SD 49.2 fL; WBC 5.13 10^3/uL (4.4-10.8)
[2021-07-02 12:42] LABS: ALT 14 U/L (14-59); AST 14 U/L (15-37); Albumin 3.5 g/dL (3.4-5.0); Alkaline Phosphatase 63 U/L (46-116); Anion Gap 8.5 mmol/L (3-11); BUN 13 mg/dL (7-18); Bilirubin, Total 0.5 mg/dL (0.2-1.0); CO2 29.5 mmol/L (21.0-32.0); CREATININE 0.9 mg/dL (0.55-1.02); Calcium 9.1 mg/dL (8.5-10.1); Chloride 101 mmol/L (98-107); Glucose 135 mg/dL (74-106); Potassium 4.3 mmol/L (3.5-5.1); Sodium 139 mmol/L (136-145); Total Protein 7.1 g/dL (6.4-8.2)
[2021-07-03 09:23] LABS: CA 125 191 U/mL (<30)
[2021-07-15] MEDS: Normal Saline Flush 10 ML SYR IVP (11:00)
[2021-07-15] MEDS: Heparin 500 UNITS/5 ML SYRINGE (11:01)
[2021-07-15 11:07] LABS: Abs Immature Grans 0.04 10^3/uL (0.0-0.06); Absolute Basophil Count 0.04 10^3/uL (0.0-0.2); Absolute Eosinophil Count 0.07 10^3/uL (0.0-0.7); Absolute Lymphocyte Count 0.67 10^3/uL (1.2-3.4); Absolute Monocyte Count 1.27 10^3/uL (0.1-0.8); Basophils % 0.6; Immature Grans % 0.6; Lymphocytes % 9.3; MCH 29.1 pg (27.0-33.0); MCHC 31.6 % (32.0-36.0); MPV 8.8 fL (8.0-11.0); Monocytes % 17.7; Neutrophils % 70.8; Nucleated RBC 0 %; Platelet Count 285 10^3/uL (130-400); RBC 4.13 10^6/uL (3.93-5.22); RDW 14.2 % (11.7-14.6); RDW-SD 47.8 fL; WBC 7.19 10^3/uL (4.4-10.8)
[2021-07-15 11:20] LABS: ALT 14 U/L (14-59); AST 14 U/L (15-37); Albumin 3.5 g/dL (3.4-5.0); Alkaline Phosphatase 71 U/L (46-116); Anion Gap 8.9 mmol/L (3-11); BUN 12 mg/dL (7-18); Bilirubin, Total 0.5 mg/dL (0.2-1.0); CO2 27.1 mmol/L (21.0-32.0); CREATININE 0.9 mg/dL (0.55-1.02); Calcium 8.9 mg/dL (8.5-10.1); Chloride 98 mmol/L (98-107); Glucose 158 mg/dL (74-106); Potassium 4.3 mmol/L (3.5-5.1); Sodium 134 mmol/L (136-145); Total Protein 7.5 g/dL (6.4-8.2)
[2021-07-16 10:16] LABS: CA 125 230 U/mL (<30)
== END 2021-07-19 23:59 | disposition home or self-care (01) ==
LOC: INF 03:33
PROVIDERS: Nurse Practitioner Family; PCP Nurse Practitioner Family; Visit Provider Obstetrics & Gynecology Gynecologic Oncology
DX: C48.1 Malignant neoplasm of specified parts of peritoneum (principal); Z45.2 Encounter for adjustment and management of vascular access device
CPT/HCPCS: 36591; 80053; 86304; 85025

== ENCOUNTER 2021-08-12 02:55 | Outpatient (RCR) | payer MEDICARE, MEDICAID, SELFPAY ==
[2021-08-12] MEDS: Heparin 500 UNITS/5 ML SYRINGE IV (11:04)
[2021-08-12] MEDS: Normal Saline Flush 10 ML SYR IVP (11:05)
[2021-08-12 11:10] LABS: Abs Immature Grans 0.05 10^3/uL (0.0-0.06); Absolute Basophil Count 0.07 10^3/uL (0.0-0.2); Absolute Eosinophil Count 0.07 10^3/uL (0.0-0.7); Absolute Lymphocyte Count 0.75 10^3/uL (1.2-3.4); Absolute Monocyte Count 1.12 10^3/uL (0.1-0.8); Absolute Neutrophil Count 4.91 10^3/uL (1.2-6.7); HCT 37.1 % (36.0-46.0); HGB 11.8 g/dL (11.2-15.7); Immature Grans % 0.7; Lymphocytes % 10.8; MCH 28.2 pg (27.0-33.0); MCHC 31.8 % (32.0-36.0); MCV 88.8 fL (80-95); MPV 8.8 fL (8.0-11.0); Monocytes % 16.1; Neutrophils % 70.4; Nucleated RBC 0 %; Platelet Count 354 10^3/uL (130-400); RBC 4.18 10^6/uL (3.93-5.22); RDW 15.9 % (11.7-14.6); RDW-SD 51.8 fL; WBC 6.97 10^3/uL (4.4-10.8)
[2021-08-12 11:30] LABS: ALT 14 U/L (14-59); AST 16 U/L (15-37); Albumin 3.6 g/dL (3.4-5.0); Alkaline Phosphatase 78 U/L (46-116); Anion Gap 10.2 mmol/L (3-11); BUN 9 mg/dL (7-18); Bilirubin, Total 0.5 mg/dL (0.2-1.0); CO2 25.8 mmol/L (21.0-32.0); CREATININE 1.1 mg/dL (0.55-1.02); Chloride 98 mmol/L (98-107); Estimated GFR 48.69 (mL/min/1.73m2); Glucose 141 mg/dL (74-106); Potassium 4.1 mmol/L (3.5-5.1); Sodium 134 mmol/L (136-145); Total Protein 7.5 g/dL (6.4-8.2)
[2021-08-13 09:38] LABS: CA 125 261 U/mL (<30)
== END 2021-08-19 23:59 | disposition home or self-care (01) ==
LOC: INF 02:55
PROVIDERS: Nurse Practitioner Family; PCP Nurse Practitioner Family; Visit Provider Obstetrics & Gynecology Gynecologic Oncology
DX: C48.1 Malignant neoplasm of specified parts of peritoneum (principal); Z45.2 Encounter for adjustment and management of vascular access device
CPT/HCPCS: 36591; 80053; 86304; 85025

== ENCOUNTER 2021-09-09 01:37 | Outpatient (CLI) | payer MEDICARE, MEDICAID, SELFPAY ==
--- NOTE | 2021-09-09 10:00 | DI.CT_ITS ---
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 TECHNIQUE: Imaging Protocol: Axial computed tomography images with coronal and sagittal reformatted images were created and reviewed CONTRAST MATERIAL: Intravenous: Omnipaque 350 Contrast volume:100 ml Oral: Yes. Oral contrast was administered for bowel opacification. COMPARISON: CT CT CHEST/ABD/PEL W from 09/25/2020 FINDINGS: CHEST: LUNGS: There is now a moderate-sized left pleural effusion and small right pleural effusion, not the September 2020 study.. There are no distinct pulmonary nodules evident. MEDIASTINUM: There is no hilar nor mediastinal adenopathy. Visualized thyroid unremarkable.Distal tip of the Port-A-Cath is in the SVC. CARDIAC: Heart size is normal. There is no pericardial effusion.Caliber of the thoracic aorta is wit hin normal limits. OSSEOUS: No significant osseous lesions.. ABDOMEN: There is no ascites. LIVER: There are no focal hepatic lesions nor dilatation of intrahepatic ducts. GALLBLADDER/BILIARY: Multiple gallstones again noted. No evidence of acute cholecystitis. CBD is no t dilated. PANCREAS: No evidence of pancreatic mass nor dilatation of the pancreatic duct. SPLEEN: Spleen is not enlarged. There are no intrasplenic lesions. Splenic and portal veins are looney nt. ADRENALS: There are no significant adrenal masses. KIDNEYS: No calculi nor hydronephrosis. No solid renal masses. No renal cysts. However, there dilata tion right ureter and there appears to be circumferential thickening of the wall of the right ureter. Left ureter appears unremarkable. ABDOMINAL AORTA: Abdominal aorta is not enlarged. LYMPH NODES: Enlarged left para-aortic lymph node is again noted, measuring 1.8 x 1.7 cm, unchanged. There is also an enlarged left iliac lymph node measuring 16 by 15 millimeters, also unchanged. No inguinal adenopathy.. ABDOMINAL WALL: Again noted is a large left para umbilical hernia which contains nonobstructed bowel loops. GI: There is no evidence of bowel obstruction. PELVIS: LYMPH NODES: There is no intrapelvic nor inguinal adenopathy. GI: No evidence of appendicitis.Again noted is evidence of partial sigmoid resection.No diverticuliti s. URINARY BLADDER: Collapsed. REPRODUCTIVE: Uterus is again noted be surgically absent. No new abnormal adnexal masses nor free fl uid in the pelvis. OSSEOUS: No significant osseous lesions. There is a gas containing posterolateral left disc herniation at L4-5 level. Multilevel disc space n arrowing. No osseous lesions. IMPRESSION: 1. Compared to the prior CT scan of September 2020 there are no pulmonary nodules but there are now bilat eral pleural effusions, moderate size on the left and small on the right, not previously present. Th ere is no intrathoracic adenopathy. 2. Para-aortic adenopathy is again noted. There is a 18 x 17 millimeter a left para-aortic lymph nod e, unchanged. Also again noted is an unchanged 16 x 15 millimeter left iliac lymph node adjacent to the left external iliac vessels. There is no inguinal adenopathy. 3. There is a dilated and circumferentially thickened right ureter seen down to the level of the babak c vessels in the pelvis. No ipsilateral prominent caliectasis. No mass in the ipsilateral renal pel vis seen. 4. Anterior abdominal wall large left para umbilical hernia is again noted which contains bowel loops . There is no bowel obstruction. 5. Partial sigmoid resection again noted as is prior hysterectomy. No new abnormal adnexal masses n or free fluid. 6. No new significant osseous lesions. L4-5 posterolateral left gas containing disc herniation, pro bably sequestered. RADIATION DOSE DELIVERED: 1,782.84mGy.cm Total DLP DATA REPOSITORY: All CT scans at this facility are submitted to the National Radiology Data Registry (NRDR) Dose Index Registry (DIR) with the [employer] ([employer]). RADIATION OPTIMIZATION: All CT scans at this facility use at least one of these dose optimization te chniques: automated exposure control; mA and/or kV adjustment per patient size (includes targeted exa ms where dose is matched to clinical indication); or iterative reconstruction.
[2021-09-09] MEDS: Omnipaque 350 MG/ML 100 ML BTL 80 ML IJ (10:19)
[2021-09-09] MEDS: Omnipaque 350 MG/ML 50 ML BTL PO (10:20)
[2021-09-09] MEDS: Breeza Beverage 473 ML BTL PO ×2 (11:20→11:21)
== END 2021-09-09 01:57 ==
PROVIDERS: PCP Nurse Practitioner Family; Visit Provider Obstetrics & Gynecology Gynecologic Oncology
DX: C48.1 Malignant neoplasm of specified parts of peritoneum (principal); J90 Pleural effusion, not elsewhere classified; K80.20 Calculus of gallbladder without cholecystitis without obstruction; R59.0 Localized enlarged lymph nodes; N28.82 Megaloureter; K42.9 Umbilical hernia without obstruction or gangrene
CPT/HCPCS: 74177; 96523; 71260; J3490; Q9967

== ENCOUNTER 2021-09-09 01:58 | Outpatient (RCR) | payer MEDICARE, MEDICAID, SELFPAY ==
[2021-09-05] MEDS: Heparin 500 UNITS/5 ML SYRINGE IV (11:03)
[2021-09-05] MEDS: Normal Saline Flush 10 ML SYR IVP (11:03)
[2021-09-05 11:31] LABS: Abs Immature Grans 0.02 10^3/uL (0.0-0.06); Absolute Basophil Count 0.04 10^3/uL (0.0-0.2); Absolute Eosinophil Count 0.07 10^3/uL (0.0-0.7); Absolute Lymphocyte Count 0.65 10^3/uL (1.2-3.4); Absolute Monocyte Count 0.79 10^3/uL (0.1-0.8); Basophils % 1.1; HCT 35.1 % (36.0-46.0); Immature Grans % 0.6; Lymphocytes % 18.2; MCH 28.1 pg (27.0-33.0); MCHC 31.3 % (32.0-36.0); MCV 89.5 fL (80-95); MPV 9.6 fL (8.0-11.0); Monocytes % 22.1; Nucleated RBC 0 %; Platelet Count 307 10^3/uL (130-400); RBC 3.92 10^6/uL (3.93-5.22); RDW-SD 55.5 fL; WBC 3.57 10^3/uL (4.4-10.8)
[2021-09-05 11:45] LABS: ALT 19 U/L (14-59); AST 18 U/L (15-37); Albumin 3.7 g/dL (3.4-5.0); Alkaline Phosphatase 90 U/L (46-116); Anion Gap 9.7 mmol/L (3-11); BUN 8 mg/dL (7-18); Bilirubin, Total 0.4 mg/dL (0.2-1.0); CO2 25.3 mmol/L (21.0-32.0); Calcium 8.6 mg/dL (8.5-10.1); Chloride 101 mmol/L (98-107); Estimated GFR 54.35 (mL/min/1.73m2); Glucose 249 mg/dL (74-106); Potassium 4.1 mmol/L (3.5-5.1); Sodium 136 mmol/L (136-145); Total Protein 7.8 g/dL (6.4-8.2)
[2021-09-06 09:50] LABS: CA 125 553 U/mL (<30)
[2021-09-09] MEDS: Normal Saline Flush 10 ML SYR IVP (08:07)
[2021-09-09] MEDS: Heparin 500 UNITS/5 ML SYRINGE IV (08:07)
== END 2021-09-16 23:59 | disposition home or self-care (01) ==
LOC: INF 01:58
PROVIDERS: PCP Nurse Practitioner Family; Visit Provider Obstetrics & Gynecology Gynecologic Oncology
DX: C48.1 Malignant neoplasm of specified parts of peritoneum (principal); Z45.2 Encounter for adjustment and management of vascular access device
CPT/HCPCS: 36591; 80053; 86304; 96523; 85025